=== PATIENT | male | born 1955 | race Caucasian/White ===

== ENCOUNTER → 2016-12-15 | Outpatient (CLI) | payer BC ==
[2016-12-15 16:25] LABS: CHLORIDE,CL 106 mmol/L (98-110); SODIUM,NA 143 mmol/L (136-146)
== END ==
LOC: MW.CHIM 15:34
PROVIDERS: ATTEND Internal Medicine
DX: E66.9 Obesity, unspecified (principal); R53.83 Other fatigue; R10.9 Unspecified abdominal pain
CPT/HCPCS: 36415; 80053; 80061; 81001; 83036; 84550; 85025; 85652; 86140

== ENCOUNTER → 2016-12-19 | Outpatient (CLI) | payer BC ==
--- NOTE | 2016-12-19 14:09 | CT ---
CT of the abdomen and pelvis without contrast. HISTORY: Pain TECHNIQUE: Axial CT images were obtained of the abdomen and pelvis without contrast. Coronal and sag ittal reconstructions obtained. FINDINGS: The lung bases are clear, no pleural effusion. There is a cyst within the left hepatic lobe and a several smaller scattered cysts noted within the liver. The Spleen, adrenal glands, and pancreas appear unremarkable for noncontrast examination. Cho lecystectomy. There is no bulky retroperitoneal lymphadenopathy. No abdominal ascites. There are no calcifications noted within the kidneys or along the courses of the ureters bilaterally . There is a moderate right renal cyst noted. The large and small bowel are normal in caliber without evidence of obstruction. The appendix appear s normal. Moderate sigmoid diverticulosis without evidence of diverticulitis. There is no bulky pelv ic lymphadenopathy. No free fluid. No free air. The urinary bladder appears normal. The visualized osseous structures appear normal. IMPRESSION: No 1. Diverticulosis without evidence of diverticulitis. 2. Cholecystectomy. 3. Hepatic and renal cysts noted. 4. No Acute findings within the abdomen or pelvis.
== END ==
LOC: MW.DI 12:51
PROVIDERS: ATTEND Internal Medicine
DX: R10.9 Unspecified abdominal pain (principal); K57.90 Diverticulosis of intestine, part unspecified, without perforation or abscess without bleeding; Z90.49 Acquired absence of other specified parts of digestive tract; K76.89 Other specified diseases of liver; N28.1 Cyst of kidney, acquired
CPT/HCPCS: 74176; 74176-26; 81001

== ENCOUNTER → 2017-01-20 | Outpatient (CLI) | payer BC ==
--- NOTE | 2017-01-20 15:32 | CR ---
EXAMINATION: Two-view chest (PA and Lateral views). HISTORY: Acute bronchitis. FINDINGS: The trachea is midline. The cardiomediastinal silhouette is within normal limits. No pulmonary infil trates, effusions or pneumothorax. Mild bibasilar atelectasis is noted. Osseous structures appear unremarkable. IMPRESSION: No acute cardiopulmonary process.
== END ==
LOC: MW.CHIM 14:56
PROVIDERS: ATTEND Internal Medicine
DX: J20.9 Acute bronchitis, unspecified (principal)
CPT/HCPCS: 36415; 71020; 71020-26; 85025

== ENCOUNTER 2018-03-21 11:51 | Emergency (ER) | payer BC ==
[2018-03-21] MEDS ORDERED: Sodium Chloride 0.9% 1,000 ML IV ONE (11:58)
[2018-03-21] MEDS ORDERED: Sodium Chloride 0.9% 10 ML Syringe FLUSH PRN (11:58)
[2018-03-21] MEDS ORDERED: Aspirin 81 MG Tab.Chew PO ONE (11:58)
[2018-03-21] MEDS ORDERED: Sodium Chloride 0.9% 2.5 ML Syringe FLUSH PRN (11:58)
--- NOTE | 2018-03-21 12:32 | EDM.PDOC ---
ED HPI GENERAL MEDICAL PROBLEM - General Chief Complaint: Gastrointestinal Problem Stated Complaint: DIZZYNESS, CHEST PAIN Time Seen by Provider: 03/21/18 13:39 Source of Information: Reports: Patient History Limitations: Reports: No Limitations - History of Present Illness INITIAL COMMENTS - FREE TEXT/NARRATIVE: HISTORY AND PHYSICAL: History of present illness: Gianluca is a 62-year-old male here with complaint of lightheadedness. He reports he has had this intermittently over the past 2 months. This morning he was sitting down and started feeling a rogers through his head and lightheaded, lasted approximately 30 seconds. He feels some tingling in his hands and reports a pain to the right chest. He reports he does not feel like the room is spinning or he is spinning. He denies any shortness of breath, diaphoresis, abdominal pain, headache. He states his symptoms have since resolved. Past medication history of insomnia and anxiety/depression. Patient later reports stopping his lorazepam a few months ago. Review of systems: As per history of present illness and below otherwise all systems reviewed and negative. Past medical history: As per history of present illness and as reviewed below otherwise noncontributory. Surgical history: As per history of present illness and as reviewed below otherwise noncontributory. Social history: No reported history of drug or alcohol abuse. Family history: As per history of present illness and as reviewed below otherwise noncontributory. Physical exam: General: patient lying comfortably in no acute distress HEENT: Atraumatic, normocephalic, pupils reactive, negative for conjunctival pallor or scleral icterus, mucous membranes moist Lungs: Clear to auscultation, breath sounds equal bilaterally, chest nontender. Heart: S1S2, regular, negative for clicks, rubs, or JVD. Abdomen: Soft, nondistended, nontender. Negative for masses or hepatosplenomegaly. Negative for costovertebral tenderness. Pelvis: Stable nontender. Genitourinary: Deferred. Rectal: Deferred Musculoskeletal: mild tenderness to palpation of right anterior chest. Extremities: Atraumatic, negative for cords or calf pain. Neurovascular unremarkable. Neuro: Awake, alert, oriented. Cranial nerves II through XII unremarkable. Cerebellum unremarkable. Motor and sensory unremarkable throughout. Exam nonfocal. Notes: Diagnostics: [CBC, CMP, Troponin, UA EKG, CXR] Therapeutics: [1L Normal Saline IV] Impression: [Dehydration Anxiety] Plan: [#1 Follow up with primary care provider #2 Return to ED as needed as discussed] Definitive disposition and diagnosis as appropriate pending reevaluation and review of above. Right Shoulder Pain Score (Numeric/FACES): 5 - Related Data Allergies Allergy/AdvReac Type Severity Reaction Status Date / Time No Known Allergies Allergy Verified 03/21/18 12:02 Home Meds: Home Meds LORazepam [Ativan] 0.5 mg PO ASDIRECTED PRN 05/26/16 [History] Omeprazole Magnesium [Prilosec Otc] 20 mg PO DAILY 05/26/16 [History] Sertraline [Zoloft] 50 mg PO DAILY 05/26/16 [History] Zolpidem [Ambien] 5 mg PO BEDTIME 05/26/16 [History] Past Medical History Cardiovascular History: Reports: None Respiratory History: Reports: None Gastrointestinal History: Reports: None Genitourinary History: Reports: None Psychiatric History: Reports: Anxiety, Panic Attack Hematologic History: Reports: None Immunologic History: Reports: None Oncologic (Cancer) History: Reports: None - Infectious Disease History Infectious Disease History: Reports: None - Past Surgical History Head Surgeries/Procedures: Reports: None HEENT Surgical History: Reports: Oral Surgery GI Surgical History: Reports: Cholecystectomy Male Surgical History: Reports: TURP-Transurethral Resection of Prostate Musculoskeletal Surgical History: Reports: Other (See Below) Social & Family History - Family History Family Medical History: Noncontributory - Tobacco Use Smoking Status *Q: Never Smoker - Caffeine Use Caffeine Use: Reports: Coffee, Soda Caffeine Use Comment: 2 cups per day - Recreational Drug Use Recreational Drug Use: No ED ROS GENERAL - Review of Systems Review Of Systems: ROS reveals no pertinent complaints other than HPI. ED EXAM, GI/ABD - Physical Exam Exam: See Below (see dictation) Course - Vital Signs Last Recorded V/S: Last Vital Signs Temp 36.4 C 03/21/18 12:03 Pulse 78 03/21/18 12:03 Resp 16 03/21/18 12:03 BP 141/82 H 03/21/18 12:03 Pulse Ox 92 L 03/21/18 12:03 - Orders/Labs/Meds Orders: Active Orders 24 hr Category Date Time Status Cardiac Monitoring [RC] . DIRECTED Care 03/21/18 11:58 Active EKG Documentation Completion [RC] STAT Care 03/21/18 11:59 Active Pulse Oximetry [RC] ASDIRECTED Care 03/21/18 11:58 Active Chest 1V Frontal [CR] Stat Exams 03/21/18 11:58 Taken CULTURE URINE [RM] Stat Lab 03/21/18 12:15 Ordered UA W/MICROSCOPIC [URIN] Stat Lab 03/21/18 12:15 Ordered Sodium Chloride 0.9% [Saline Flush] Med 03/21/18 11:58 Active 10 ml FLUSH ASDIRECTED PRN Sodium Chloride 0.9% [Saline Flush] Med 03/21/18 11:58 Active 2.5 ml FLUSH ASDIRECTED PRN Saline Lock Insert [OM.PC] Stat Oth 03/21/18 11:58 Ordered Medication Orders Sodium Chloride (Saline Flush) 10 ml FLUSH ASDIRECTED PRN PRN Reason: Keep Vein Open Sodium Chloride (Saline Flush) 2.5 ml FLUSH ASDIRECTED PRN PRN Reason: Keep Vein Open Labs: Laboratory Tests 03/21/18 03/21/18 03/21/18 Range/Units 12:06 12:06 12:06 WBC 5.82 (4.0-11.0) K/uL RBC 5.45 (4.50-5.90) M/uL Hgb 16.2 (13.0-17.0) g/dL Hct 46.3 (38.0-50.0) % MCV 85.0 (80.0-98.0) fL MCH 29.7 (27.0-32.0) pg MCHC 35.0 (31.0-37.0) g/dL RDW Std Deviation 41.3 (28.0-62.0) fl RDW Coeff of Javad 13 (11.0-15.0) % Plt Count 169 (150-400) K/uL MPV 9.80 (7.40-12.00) fL Neut % (Auto) 75.7 (48.0-80.0) % Lymph % (Auto) 13.4 L (16.0-40.0) % [place] % (Auto) 8.9 (0.0-15.0) % Eos % (Auto) 1.7 (0.0-7.0) % Baso % (Auto) 0.3 (0.0-1.5) % Neut # (Auto) 4.4 (1.4-5.7) K/uL Lymph # (Auto) 0.8 (0.6-2.4) K/uL [place] # (Auto) 0.5 (0.0-0.8) K/uL Eos # (Auto) 0.1 (0.0-0.7) K/uL Baso # (Auto) 0.0 (0.0-0.1) K/uL Nucleated RBC % 0.0 /100WBC Nucleated RBCs # 0 K/uL INR 0.99 Sodium 141 (136-148) mmol/L Potassium 4.0 (3.5-5.1) mmol/L Chloride 106 (98-107) mmol/L Carbon Dioxide 29.6 (21.0-32.0) mmol/L BUN 24 H (7.0-18.0) mg/dL Creatinine 1.2 (0.8-1.3) mg/dL Est Cr Clr Drug Dosing 71.85 mL/min Estimated GFR (MDRD) > 60.0 ml/min Glucose 138 H (74-106) mg/dL Calcium 8.9 (8.5-10.1) mg/dL Total Bilirubin 0.4 (0.2-1.0) mg/dL AST 16 (15-37) IU/L ALT 26 (14-63) IU/L Alkaline Phosphatase 76 (46-116) U/L Troponin I < 0.050 (0.000-0.056) ng/mL Total Protein 6.7 (6.4-8.2) g/dL Albumin 3.6 (3.4-5.0) g/dL Globulin 3.1 (2.0-3.5) g/dL Albumin/Globulin Ratio 1.2 L (1.3-2.8) Amylase 44 (25-115) U/L Lipase 224 (73-393) U/L Urine Color Urine Appearance Urine pH (5.0-8.0) Ur Specific [place] (1.001-1.035) Urine Protein (NEGATIVE) mg/dL Urine Glucose (UA) (NEGATIVE) mg/dL Urine Ketones (NEGATIVE) mg/dL Urine Occult Blood (NEGATIVE) Urine Nitrite (NEGATIVE) Urine Bilirubin (NEGATIVE) Urine Urobilinogen (<2.0) EU/dL Ur Leukocyte Esterase (NEGATIVE) Urine RBC (0-2/HPF) Urine WBC (0-5/HPF) Ur Epithelial Cells (NONE-FEW) Urine Bacteria (NEGATIVE) 03/21/18 Range/Units 12:15 WBC (4.0-11.0) K/uL RBC (4.50-5.90) M/uL Hgb (13.0-17.0) g/dL Hct (38.0-50.0) % MCV (80.0-98.0) fL MCH (27.0-32.0) pg MCHC (31.0-37.0) g/dL RDW Std Deviation (28.0-62.0) fl RDW Coeff of Javad (11.0-15.0) % Plt Count (150-400) K/uL MPV (7.40-12.00) fL Neut % (Auto) (48.0-80.0) % Lymph % (Auto) (16.0-40.0) % [place] % (Auto) (0.0-15.0) % Eos % (Auto) (0.0-7.0) % Baso % (Auto) (0.0-1.5) % Neut # (Auto) (1.4-5.7) K/uL Lymph # (Auto) (0.6-2.4) K/uL [place] # (Auto) (0.0-0.8) K/uL Eos # (Auto) (0.0-0.7) K/uL Baso # (Auto) (0.0-0.1) K/uL Nucleated RBC % /100WBC Nucleated RBCs # K/uL INR Sodium (136-148) mmol/L Potassium (3.5-5.1) mmol/L Chloride (98-107) mmol/L Carbon Dioxide (21.0-32.0) mmol/L BUN (7.0-18.0) mg/dL Creatinine (0.8-1.3) mg/dL Est Cr Clr Drug Dosing mL/min Estimated GFR (MDRD) ml/min Glucose (74-106) mg/dL Calcium (8.5-10.1) mg/dL Total Bilirubin (0.2-1.0) mg/dL AST (15-37) IU/L ALT (14-63) IU/L Alkaline Phosphatase (46-116) U/L Troponin I (0.000-0.056) ng/mL Total Protein (6.4-8.2) g/dL Albumin (3.4-5.0) g/dL Globulin (2.0-3.5) g/dL Albumin/Globulin Ratio (1.3-2.8) Amylase (25-115) U/L Lipase (73-393) U/L Urine Color YELLOW Urine Appearance CLEAR Urine pH 6.0 (5.0-8.0) Ur Specific [place] <= 1.005 (1.001-1.035) Urine Protein NEGATIVE (NEGATIVE) mg/dL Urine Glucose (UA) NEGATIVE (NEGATIVE) mg/dL Urine Ketones NEGATIVE (NEGATIVE) mg/dL Urine Occult Blood NEGATIVE (NEGATIVE) Urine Nitrite NEGATIVE (NEGATIVE) Urine Bilirubin NEGATIVE (NEGATIVE) Urine Urobilinogen 0.2 (<2.0) EU/dL Ur Leukocyte Esterase NEGATIVE (NEGATIVE) Urine RBC 0-1 (0-2/HPF) Urine WBC 0-1 (0-5/HPF) Ur Epithelial Cells RARE (NONE-FEW) Urine Bacteria RARE (NEGATIVE) Meds: Medications Generic Name Dose Route Start Last Admin Trade Name Freq PRN Reason Stop Dose Admin Sodium Chloride 10 ml 03/21/18 11:58 Saline Flush FLUSH ASDIRECTED PRN Keep Vein Open Sodium Chloride 2.5 ml 03/21/18 11:58 Saline Flush FLUSH ASDIRECTED PRN Keep Vein Open Discontinued Medications Generic Name Dose Route Start Last Admin Trade Name Ari PRN Reason Stop Dose Admin Aspirin 324 mg 03/21/18 11:58 03/21/18 12:26 Aspirin PO 03/21/18 11:59 324 mg ONETIME ONE Administration Sodium Chloride 1,000 mls @ 999 mls/hr 03/21/18 11:58 03/21/18 12:24 Normal Saline IV 03/21/18 12:58 999 mls/hr .Bolus ONE Administration Departure - Departure Time of Disposition: 13:38 Disposition: Home, Self-Care 01 Condition: Good Clinical Impression: Anxiety, Dehydration - Discharge Information Forms: ED Department Discharge Additional Instructions: The following information is given to patients seen in the emergency department who are being discharged to home. This information is to outline your options for follow-up care. We provide all patients seen in our emergency department with a follow-up referral. The need for follow-up, as well as the timing and circumstances, are variable depending upon the specifics of your emergency department visit. If you don't have a primary care physician on staff, we will provide you with a referral. We always advise you to contact your personal physician following an emergency department visit to inform them of the circumstance of the visit and for follow-up with them and/or the need for any referrals to a consulting specialist. The emergency department will also refer you to a specialist when appropriate. This referral assures that you have the opportunity for follow-up care with a specialist. All of these measure are taken in an effort to provide you with optimal care, which includes your follow-up. Under all circumstances we always encourage you to contact your private physician who remains a resource for coordinating your care. When calling for follow-up care, please make the office aware that this follow-up is from your recent emergency room visit. If for any reason you are refused follow-up, please contact the [facility] Department at and asked to speak to the emergency department charge nurse. [facility] [address] [place] [id number] [phone] Follow up with primary care provider #2 Return to ED as needed as discussed - My Orders Last 24 Hours: My Active Orders 03/21/18 11:58 Cardiac Monitoring [RC] . DIRECTED Pulse Oximetry [RC] ASDIRECTED Chest 1V Frontal [CR] Stat Sodium Chloride 0.9% [Saline Flush] 10 ml FLUSH ASDIRECTED PRN Sodium Chloride 0.9% [Saline Flush] 2.5 ml FLUSH ASDIRECTED PRN Saline Lock Insert [OM.PC] Stat 03/21/18 11:59 EKG Documentation Completion [RC] STAT 03/21/18 12:15 CULTURE URINE [RM] Stat UA W/MICROSCOPIC [URIN] Stat - Assessment/Plan Last 24 Hours: My Active Orders 03/21/18 11:58 Cardiac Monitoring [RC] . DIRECTED Pulse Oximetry [RC] ASDIRECTED Chest 1V Frontal [CR] Stat Sodium Chloride 0.9% [Saline Flush] 10 ml FLUSH ASDIRECTED PRN Sodium Chloride 0.9% [Saline Flush] 2.5 ml FLUSH ASDIRECTED PRN Saline Lock Insert [OM.PC] Stat 03/21/18 11:59 EKG Documentation Completion [RC] STAT 03/21/18 12:15 CULTURE URINE [RM] Stat UA W/MICROSCOPIC [URIN] Stat
[2018-03-21 12:35] LABS: CHLORIDE,CL 106 mmol/L (98-107); SODIUM,NA 141 mmol/L (136-148)
[2018-03-21 14:29] VITALS: BP 125/62
--- NOTE | 2018-03-22 17:32 | CR ---
EXAM DATE: 03/21/18 PATIENT'S AGE: 62 Patient: NATANAEL FEE Facility: [place], [place] Site . Site : [id number] Study: XRay Chest [id number]/15/2018 12:53:23 PM Ordering Physician: Doctor Patino Final Report: INDICATION: Chest pain TECHNIQUE: Single view chest. FINDINGS: The lungs are clear. The heart, mediastinum and pulmonary vessels are of normal size. There is no evidence of pleural disease. IMPRESSION: Negative chest. Dictated by Genevieve Curry MD @ Mar 21 2018 1:22PM (Electronic Signature) Report Signed by Proxy. LAN
== END 2018-03-21 13:59 | disposition home or self-care (01) ==
LOC: MW.ED 11:51
DX: E86.0 Dehydration (principal); F41.9 Anxiety disorder, unspecified; Z79.899 Other long term (current) drug therapy
CPT/HCPCS: 71045; 80053; 81001; 82150; 83690; 84484; 85025; 85610; 87086; 93005; 96360; 99284; A9270; J7040

== ENCOUNTER 2020-04-05 13:01 | Observation (INO) | payer BC, OTHER ==
[2020-04-05] MEDS ORDERED: Sodium Chloride 0.9% 2.5 ML Syringe FLUSH PRN (13:03)
[2020-04-05] MEDS ORDERED: Sodium Chloride 0.9% 10 ML Syringe FLUSH PRN (13:03)
[2020-04-05] MEDS ORDERED: Aspirin 81 MG Tab.Chew PO ONE (13:03)
--- NOTE | 2020-04-05 13:07 | EDM.PDOC ---
<Annel Day E - Last Filed: 04/05/20 17:09> ED HPI GENERAL MEDICAL PROBLEM - General Stated Complaint: CHEST PAIN Time Seen by Provider: 04/05/20 13:03 Source of Information: Reports: Patient History Limitations: Reports: No Limitations - History of Present Illness INITIAL COMMENTS - FREE TEXT/NARRATIVE: HISTORY AND PHYSICAL: History of present illness: Patient is a 64-year-old male who presents to the emergency room with complaints of sharp sudden chest pain to the left anterior chest. He states this started while at work approximately 15 minutes prior to arrival. He states nothing makes the pain better or worse. Pain does not radiate anywhere. 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 Referral for cardiology was due to some lower extremity edema, shortness of breath and episodes of tachycardia that has been intermittent over the past 1 month. Patient denies any fever, chills, headache, change in vision, syncope or near syncope. Denies any neck/neck/back pain or cough. Denies any abdominal pain, nausea, vomiting, diarrhea, constipation or dysuria. Has not noted any blood in urine or stool. Patient has been eating and drinking appropriately. No personal family history of heart disease. Does not smoke. Review of systems: As per history of present illness and below otherwise all systems reviewed and negative. Past medical history: As per history of present illness and as reviewed below otherwise noncontributory. Surgical history: As per history of present illness and as reviewed below otherwise noncontributory. Social history: See social history for further information Family history: As per history of present illness and as reviewed below otherwise no ncontributory. Physical exam: General: Well developed and well nourished 64-year-old male. Alert and oriented. Nontoxic-appearing but appears mildly uncomfortable HEENT: Atraumatic, normocephalic, pupils equal and reactive bilaterally, negative for conjunctival pallor or scleral icterus, mucous membranes moist, TMs normal bilaterally, throat clear, neck supple, nontender, trachea midline. No dr ooling or trismus noted. No meningeal signs. No hot potato voice noted. Lungs: Slightly diminished bases bilaterally to auscultation, breath sounds equal bilaterally, chest nontender. Heart: S1S2, regular rate and rhythm without overt murmur Abdomen: Soft, nondistended, nontender. Negative for masses or hepatosplenomegaly. Negative for costovertebral tenderness. Pelvis: Stable nontender. Skin: Intact, warm, dry. No lesions or rashes noted. Extremities: Atraumatic, moves all extremities per self without difficulty or deficits, negative for cords or calf pain. Neurovascular unremarkable. Neuro: Awake, alert, oriented. Cranial nerves II through XII unremarkable. Cerebellum unremarkable. Motor and sensory unremarkable throughout. Exam nonfocal. 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 03/14/2020: Echocardiogram was done: Left ventricle ejection fraction, by visual estimation is 60 to 65%. Aortic valve is structurally normal and tricuspid. No evidence of mitral valve regurgitation. Mild tricuspid valve regurgitation. The right ventricular systolic pressure is normal at 29.0 mmHg. 7.5 cm probable liver cyst. No regional wall motion abnormalities. EKG shows no concern for STEMI. Sinus Rhythm with rate of 79. Patient did not get any relief with the nitro. Morphine has been administered. Patient was used on 3 L of oxygen as his oxygen saturation was 90% on room air. D-dimer is within normal limits. Chest X-ray shows no acute findings. CT of the chest shows no pulmonary embolism. Groundglass appearance within the left upper lung as well as both lower lungs as well as atelectasis within both lower lungs. Radiology states it is difficult to exclude superimposed pneumonia with atelectasis. Liver cyst noted measuring 7.[address] Kessler was consulted on this case. He is agreeable to accepting this patient. COVID results negative. Patient states he is currently pain-free. No change in physical exam. Patient will be admitted for observation with telemetry. Diagnostics: CBC, CMP, Troponin, EKG, CXR, D.Dimer, CT chest Therapeutics: Aspirin, Nitro, morphine, zofran Impression: Chest pain r/o UT Plan: Med/Surg admission to Definitive disposition and diagnosis as appropriate pending reevaluation and review of above. Onset: Today Location: Reports: Chest chest Pain Score (Numeric/FACES): 5 - Related Data Allergies Allergy/AdvReac Type Severity Reaction Status Date / Time No Known Allergies Allergy Verified 04/05/20 16:58 Home Meds: Home Meds LORazepam [Ativan] 0.5 mg PO DAILY PRN 05/26/16 [History] Sertraline [Zoloft] 100 mg PO DAILY 05/26/16 [History] Zolpidem [Ambien] 10 mg PO BEDTIME PRN 05/26/16 [History] Finasteride 5 mg PO DAILY 04/05/20 [History] Losartan [Cozaar] 25 mg PO DAILY 04/05/20 [History] Tamsulosin [Tamsulosin 24 Hr] 0.4 mg PO DAILY 04/05/20 [History] Past Medical History Cardiovascular History: Reports: None Respiratory History: Reports: None Gastrointestinal History: Reports: None Genitourinary History: Reports: None Psychiatric History: Reports: Anxiety, Panic Attack Hematologic History: Reports: None Immunologic History: Reports: None Oncologic (Cancer) History: Reports: None - Infectious Disease History Infectious Disease History: Reports: None - Past Surgical History Head Surgeries/Procedures: Reports: None HEENT Surgical History: Reports: Oral Surgery GI Surgical History: Reports: Cholecystectomy Male Surgical History: Reports: TURP-Transurethral Resection of Prostate Musculoskeletal Surgical History: Reports: Other (See Below) Social & Family History - Family History Family Medical History: Noncontributory - Caffeine Use Caffeine Use: Reports: Coffee, Soda Caffeine Use Comment: 2 cups per day ED ROS GENERAL - Review of Systems Review Of Systems: Comprehensive ROS is negative, except as noted in HPI. ED EXAM, GENERAL - Physical Exam Exam: See Below (See dictation) Departure - Departure Time of Disposition: 17:09 Disposition: Home, Self-Care 01 Clinical Impression: Chest pain, rule out acute myocardial infarction <Benito Galvan - Last Filed: 04/06/20 07:26> ED HPI GENERAL MEDICAL PROBLEM chest Pain Score (Numeric/FACES): 5 Left Upper Anterior Chest Pain Score (Numeric/FACES): 3 Course - Vital Signs Last Recorded V/S: Last Vital Signs Temp 36.3 C 04/06/20 04:17 Pulse 67 04/06/20 04:17 Resp 17 04/06/20 04:17 BP 105/66 04/06/20 04:17 Pulse Ox 94 L 04/06/20 04:17 - Orders/Labs/Meds Orders: Active Orders 24 hr Category Date Time Status Cardiac Monitoring [RC] Q8H Care 04/05/20 13:03 Active Sodium Chloride 0.9% [Saline Flush] Med 04/05/20 13:03 Active 10 ml FLUSH ASDIRECTED PRN Sodium Chloride 0.9% [Saline Flush] Med 04/05/20 13:03 Active 2.5 ml FLUSH ASDIRECTED PRN Saline Lock Insert [OM.PC] Stat Oth 04/05/20 13:03 Ordered Medication Orders Acetaminophen (Tylenol) 650 mg PO Q4H PRN PRN Reason: Pain (Mild 1-3)/fever Last Admin: 04/05/20 18:23 Dose: 650 mg Documented by: ANNALISA Enoxaparin Sodium (Lovenox) 40 mg SUBCUT Q24H LIAN Last Admin: 04/05/20 18:24 Dose: 40 mg Documented by: ANNALISA Finasteride (Proscar) 5 mg PO DAILY [facility] Losartan Potassium (Cozaar) 25 mg PO DAILY [facility] Morphine Sulfate (Morphine) 2 mg IVPUSH Q4H PRN PRN Reason: Pain (severe 7-10) Stop: 04/06/20 17:47 Zolpidem 10 Mg 1 each PO BEDTIME PRN PRN Reason: Sleep Last Admin: 04/05/20 21:18 Dose: 1 each Documented by: AYESHA Sertraline HCl (Zoloft) 100 mg PO DAILY [facility] Sodium Chloride (Saline Flush) 10 ml FLUSH ASDIRECTED PRN PRN Reason: Keep Vein Open Sodium Chloride (Saline Flush) 2.5 ml FLUSH ASDIRECTED PRN PRN Reason: Keep Vein Open Tamsulosin HCl (Flomax) 0.4 mg PO DAILY [facility] Labs: Laboratory Tests 04/05/20 04/05/20 04/05/20 Range/Units 13:13 13:13 13:13 WBC 8.22 (4.0-11.0) K/uL RBC 5.79 (4.50-5.90) M/uL Hgb 17.2 H (13.0-17.0) g/dL Hct 49.9 (38.0-50.0) % MCV 86.2 (80.0-98.0) fL MCH 29.7 (27.0-32.0) pg MCHC 34.5 (31.0-37.0) g/dL RDW Std Deviation 42.2 (28.0-62.0) fl RDW Coeff of Javad 13 (11.0-15.0) % Plt Count 207 (150-400) K/uL MPV 10.00 (7.40-12.00) fL Neut % (Auto) 74.7 (48.0-80.0) % Lymph % (Auto) 12.9 L (16.0-40.0) % Dorado % (Auto) 10.1 (0.0-15.0) % Eos % (Auto) 1.9 (0.0-7.0) % Baso % (Auto) 0.4 (0.0-1.5) % Neut # (Auto) 6.1 H (1.4-5.7) K/uL Lymph # (Auto) 1.1 (0.6-2.4) K/uL [place] # (Auto) 0.8 (0.0-0.8) K/uL Eos # (Auto) 0.2 (0.0-0.7) K/uL Baso # (Auto) 0.0 (0.0-0.1) K/uL Nucleated RBC % 0.0 /100WBC Nucleated RBCs # 0 K/uL D-Dimer, Quantitative 0.38 (0.0-0.50) mg/L FEU Sodium 139 (136-148) mmol/L Potassium 3.6 (3.5-5.1) mmol/L Chloride 101 (98-107) mmol/L Carbon Dioxide 28.0 (21.0-32.0) mmol/L BUN 14 (7.0-18.0) mg/dL Creatinine 1.1 (0.8-1.3) mg/dL Est Cr Clr Drug Dosing 76.42 mL/min Estimated GFR (MDRD) > 60.0 ml/min Glucose 95 (74-106) mg/dL Calcium 8.5 (8.5-10.1) mg/dL Total Bilirubin 0.3 (0.2-1.0) mg/dL AST 19 (15-37) IU/L ALT 28 (14-63) IU/L Alkaline Phosphatase 82 (46-116) U/L Troponin I < 0.050 (0.000-0.056) ng/mL B-Natriuretic Peptide (<100) PG/ML Total Protein 8.1 (6.4-8.2) g/dL Albumin 4.3 (3.4-5.0) g/dL Globulin 3.8 (2.6-4.0) g/dL Albumin/Globulin Ratio 1.1 (0.9-1.6) COVID-19 (SALLY) (NEGATIVE) 04/05/20 04/05/20 Range/Units 13:13 15:20 WBC (4.0-11.0) K/uL RBC (4.50-5.90) M/uL Hgb (13.0-17.0) g/dL Hct (38.0-50.0) % MCV (80.0-98.0) fL MCH (27.0-32.0) pg MCHC (31.0-37.0) g/dL RDW Std Deviation (28.0-62.0) fl RDW Coeff of Javad (11.0-15.0) % Plt Count (150-400) K/uL MPV (7.40-12.00) fL Neut % (Auto) (48.0-80.0) % Lymph % (Auto) (16.0-40.0) % Dorado % (Auto) (0.0-15.0) % Eos % (Auto) (0.0-7.0) % Baso % (Auto) (0.0-1.5) % Neut # (Auto) (1.4-5.7) K/uL Lymph # (Auto) (0.6-2.4) K/uL [place] # (Auto) (0.0-0.8) K/uL Eos # (Auto) (0.0-0.7) K/uL Baso # (Auto) (0.0-0.1) K/uL Nucleated RBC % /100WBC Nucleated RBCs # K/uL D-Dimer, Quantitative (0.0-0.50) mg/L FEU Sodium (136-148) mmol/L Potassium (3.5-5.1) mmol/L Chloride (98-107) mmol/L Carbon Dioxide (21.0-32.0) mmol/L BUN (7.0-18.0) mg/dL Creatinine (0.8-1.3) mg/dL Est Cr Clr Drug Dosing mL/min Estimated GFR (MDRD) ml/min Glucose (74-106) mg/dL Calcium (8.5-10.1) mg/dL Total Bilirubin (0.2-1.0) mg/dL AST (15-37) IU/L ALT (14-63) IU/L Alkaline Phosphatase (46-116) U/L Troponin I (0.000-0.056) ng/mL B-Natriuretic Peptide 23 (<100) PG/ML Total Protein (6.4-8.2) g/dL Albumin (3.4-5.0) g/dL Globulin (2.6-4.0) g/dL Albumin/Globulin Ratio (0.9-1.6) COVID-19 (SALLY) NEGATIVE (NEGATIVE) Meds: Medications Generic Name Dose Route Start Last Admin Trade Name Freq PRN Reason Stop Dose Admin Acetaminophen 650 mg 04/05/20 17:46 04/05/20 18:23 Tylenol PO 650 mg Q4H PRN Administration Pain (Mild 1-3)/fever Enoxaparin Sodium 40 mg 04/05/20 18:00 04/05/20 18:24 Lovenox SUBCUT 40 mg Q24H LIAN Administration Finasteride 5 mg 04/06/20 09:00 Proscar PO DAILY [facility]AN Losartan Potassium 25 mg 04/06/20 09:00 Cozaar PO DAILY [facility]AN Morphine Sulfate 2 mg 04/05/20 17:46 Morphine IVPUSH 04/06/20 17:47 Q4H PRN Pain (severe 7-10) Zolpidem 10 Mg 1 each 04/05/20 17:48 04/05/20 21:18 PO 1 each BEDTIME PRN Administration Sleep Sertraline HCl 100 mg 04/06/20 09:00 Zoloft PO DAILY [facility]AN Sodium Chloride 10 ml 04/05/20 13:03 Saline Flush FLUSH ASDIRECTED PRN Keep Vein Open Sodium Chloride 2.5 ml 04/05/20 13:03 Saline Flush FLUSH ASDIRECTED PRN Keep Vein Open Tamsulosin HCl 0.4 mg 04/06/20 09:00 Flomax PO DAILY LIAN Discontinued Medications Generic Name Dose Route Start Last Admin Trade Name Freq PRN Reason Stop Dose Admin Aspirin 324 mg 04/05/20 13:03 04/05/20 13:19 Aspirin PO 04/05/20 13:04 324 mg ONETIME ONE Administration Sodium Chloride 1,000 mls @ 125 mls/hr 04/05/20 13:21 04/05/20 13:25 Normal Saline IV 04/05/20 21:20 125 mls/hr STAT ONE Administration Iopamidol 50 ml 04/05/20 14:42 04/05/20 15:03 Isovue-370 (76%) IV 04/05/20 14:43 50 ml ONETIME STA Administration Morphine Sulfate 4 mg 04/05/20 13:27 04/05/20 13:32 Morphine IVPUSH 04/05/20 13:28 4 mg ONETIME ONE Administration Morphine Sulfate 2 mg 04/05/20 14:20 04/05/20 15:12 Morphine IVPUSH 04/05/20 14:21 2 mg ONETIME ONE Administration Nitroglycerin 0.4 mg 04/05/20 13:03 04/05/20 13:29 Nitrostat SL 0.4 mg Q5M PRN Administration Chest Pain Ondansetron HCl 4 mg 04/05/20 13:27 04/05/20 13:32 Zofran IVPUSH 04/05/20 13:28 4 mg ONETIME ONE Administration MLP Sign Off - Signature Requirements MLP Sign Off: Yes :: See my separate supervisory note from the same date of service. -Sachi Galvan, DO
[2020-04-05] MEDS: Nitroglycerin 0.4 MG Tab.SL SL PRN ×3 (13:19→13:29)
[2020-04-05] MEDS ORDERED: Sodium Chloride 0.9% 1,000 ML IV ONE (13:21)
[2020-04-05] MEDS ORDERED: Morphine 4 MG/ML Syringe IVPUSH ONE (13:27)
[2020-04-05] MEDS ORDERED: Ondansetron 4 MG/2 ML SDV IVPUSH ONE (13:27)
--- NOTE | 2020-04-05 13:57 | CR ---
Chest: Portable view of the chest was obtained. Comparison: Prior chest x-ray of 03/21/18 is available as well as prior chest CT study of 03/14/20. Findings: Heart size and mediastinum are normal. Lungs show no acute parenchymal change. Bony structures are grossly intact. Impression: 1. Nothing acute is appreciated on portable chest x-ray. Diagnostic code #1 This report was dictated in MDT
--- NOTE | 2020-04-05 14:03 | PCM.SN.2 ---
- Free Text/Narrative Note: Patient was presented to be by the mid-level provider. I have personally independently seen and evaluated the patient at bedside and, if available, have spoken with the with the family. I agree with the history, physical, medical decision making, and plan of treatment as documented by the mid-level provider. I have performed the medical decision making for this patient, including assessing the results of all diagnostic testing and I have instructed the mid- level provider to document the results. 62-year-old male with past medical history of hypertension presenting with new onset left-sided chest pain described as "pressure" radiating to the left shoulder and the left trapezius. Onset about 1 hour 20 minutes prior to arrival while in a meeting. Nothing makes it better or worse. Also reports a 1 month history of new dyspnea. Has been followed by his primary doctor and had an echocardiogram on 03/14/2020 that showed normal left ventricular function. No known history of coronary artery disease or any pulmonary disease. Twelve-lead EKG shows no acute ischemia. D-dimer is negative. Troponin is negative. LFTs, electrolytes, renal function reassuring. Noted to be hypoxic on room air and required supplemental oxygen, initial room air saturations were 90%. Lungs are clear. CT pulmonary angiogram study showed no evidence of pulmonary embolism but did demonstrate groundglass appearance of the left upper lung and both lower lungs, concerning for possible pneumonia although the patient does not have any fever or cough or constitutional symptoms. Initial work-up for coronary ischemia is negative but the patient is persistently hypoxic despite negative PE work-up. No convincing story for pneu monia at this point so we will defer antibiotics. However, given persistent hypoxia I would favor admission to the hospital on observation status. Dr. Herminio Kessler the hospitalist agrees to admit to observation.
[2020-04-05 14:04] LABS: BLOOD UREA NITROGEN,BUN 14 mg/dL (7.0-18.0); CHLORIDE,CL 101 mmol/L (98-107); GLUCOSE RANDOM 95 mg/dL (74-106); POTASSIUM,K 3.6 mmol/L (3.5-5.1); SODIUM,NA 139 mmol/L (136-148)
[2020-04-05] MEDS ORDERED: Morphine 2 MG/ML SYRINGE IVPUSH ONE (14:20)
[2020-04-05] MEDS ORDERED: Iopamidol 755 MG/ML 50 ML Bottle IV STA (14:42)
--- NOTE | 2020-04-05 15:17 | CT ---
CT chest Technique: Multiple axial sections through the chest were obtained. Intravenous contrast was utilized. Study performed as a pulmonary angiogram protocol. Comparison: Prior chest CT study of 03/14/20. Findings: Pulmonary arteries are fairly well opacified. No filling defects are seen to indicate pulmonary embolism. Visualized upper abdominal structures shows a large liver cyst measuring 7.6 cm. No pericardial thickening is seen. Aorta shows no aneurysm. Mediastinum and hilar region show no adenopathy. No axillary adenopathy is noted. Areas of atelectasis is noted within both lungs which have increased from previous exam. Slight groundglass appearance is noted within both lower lungs as well as small amount within the left upper lung. Difficult to exclude mild superimposed pneumonia with atelectasis. No pleural effusions are seen. No pneumothorax is noted. No acute bony abnormality is appreciated. Impression: 1. No findings of pulmonary embolism. 2. Groundglass appearance within the left upper lung as well as both lower lungs as well as atelectasis within both lower lungs. As mentioned above, difficult to exclude superimposed pneumonia with atelectasis. These findings represent an interval change from prior study. 3. Liver cyst. Diagnostic code #3 This report was dictated in MDT
[2020-04-05] MEDS ORDERED: Morphine 2 MG/ML SYRINGE IVPUSH PRN (17:46)
[2020-04-05] MEDS ORDERED: Zolpidem 10 MG PO PRN (17:48)
--- NOTE | 2020-04-05 17:49 | PCM.HP.2 ---
H&P History of Present Illness - General Date of Service: 04/05/20 Admit Problem/Dx: Admission Diagnosis/Problem Admission Diagnosis/Problem Chest pain, rule out acute myocardial infarction Source of Information: Patient History Limitations: Reports: No Limitations - History of Present Illness Initial Comments - Free Text/Narative: 64-year-old male presents complaining of left-sided chest pain. He has a PMH of hypertension and BPH. The pain started while on a conference call at work. It is is described as being "pressure-like" and there was some radiation to his left shoulder. The pain does not change when he is exerting himself or at rest. Of note, patient reports that he has been having intermitted leg swelling and shortness of breath for the past 1-2 months. He has a pending cardiology referral made by his PCP. He denies any fevers, chills, sore throat, cough, nausea, vomiting, abdominal pain, diarrhea, blood in stool, blood in urine, numbness or tingling in extremities. In the ER, patient started on supplemental oxygen, EKG showed no acute ST changes, given aspirin, nitroglycerin x 3, morphine and zofran. CXR negative. CT chest showed BARTOLO ground glass appearance as well as b/l lower lobes. Per radiologist, difficult to exclude superimposed pneumonia on atelectasis. Initial troponin was negative. COVID19 negative. chest Pain Score (Numeric/FACES): 5 - Related Data Allergies/Adverse Reactions: Allergies Allergy/AdvReac Type Severity Reaction Status Date / Time No Known Allergies Allergy Verified 04/05/20 16:58 Home Medications: Home Meds LORazepam [Ativan] 0.5 mg PO DAILY PRN 05/26/16 [History] Sertraline [Zoloft] 100 mg PO DAILY 05/26/16 [History] Zolpidem [Ambien] 10 mg PO BEDTIME PRN 05/26/16 [History] Finasteride 5 mg PO DAILY 04/05/20 [History] Losartan [Cozaar] 25 mg PO DAILY 04/05/20 [History] Tamsulosin [Tamsulosin 24 Hr] 0.4 mg PO DAILY 04/05/20 [History] Past Medical History HEENT History: Reports: None Cardiovascular History: Reports: None Respiratory History: Reports: None Gastrointestinal History: Reports: None Genitourinary History: Reports: None Psychiatric History: Reports: Anxiety, Panic Attack Hematologic History: Reports: None Immunologic History: Reports: None Oncologic (Cancer) History: Reports: None - Infectious Disease History Infectious Disease History: Reports: None - Past Surgical History Head Surgeries/Procedures: Reports: None HEENT Surgical History: Reports: Oral Surgery GI Surgical History: Reports: Cholecystectomy Male Surgical History: Reports: TURP-Transurethral Resection of Prostate Musculoskeletal Surgical History: Reports: Other (See Below) Social & Family History - Family History Family Medical History: Noncontributory - Tobacco Use Smoking Status *Q: Never Smoker Years of Tobacco use: 35 Second Hand Smoke Exposure: No - Caffeine Use Caffeine Use: Reports: Coffee, Soda Caffeine Use Comment: 2 cups per day - Recreational Drug Use Recreational Drug Use: No H&P Review of Systems - Review of Systems: Review Of Systems: Comprehensive ROS is negative, except as noted in HPI. Exam - Exam Exam: See Below - Vital Signs Vital Signs: Last Vital Signs Temp 36.4 C 04/05/20 16:35 Pulse 60 04/05/20 16:35 Resp 18 04/05/20 13:08 BP 131/77 04/05/20 16:35 Pulse Ox 97 04/05/20 16:35 Weight: 114.623 kg - Exam General: Alert, Oriented, Cooperative HEENT: Conjunctiva Clear, EOMI, Hearing Intact, Posterior Pharynx Clear, Pupils Equal, Pupils Reactive Neck: Supple, Trachea Midline Lungs: Clear to Auscultation, Normal Respiratory Effort Cardiovascular: Regular Rate, Regular Rhythm GI/Abdominal Exam: Normal Bowel Sounds, Soft, Non-Tender, No Distention Extremities: Normal Inspection, Normal Range of Motion, No Pedal Edema Skin: Warm, Dry, Intact Neurological: Cranial Nerves Intact, Strength Equal Bilateral, Normal Speech, Normal Tone Neuro Extensive - Mental Status: Alert, Oriented x3, Normal Mood/Affect Psychiatric: Alert, Normal Affect, Normal Mood - Patient Data Lab Results Last 24 hrs: Laboratory Results - last 24 hr 04/05/20 04/05/20 04/05/20 Range/Units 13:13 13:13 13:13 WBC 8.22 (4.0-11.0) K/uL RBC 5.79 (4.50-5.90) M/uL Hgb 17.2 H (13.0-17.0) g/dL Hct 49.9 (38.0-50.0) % MCV 86.2 (80.0-98.0) fL MCH 29.7 (27.0-32.0) pg MCHC 34.5 (31.0-37.0) g/dL RDW Std Deviation 42.2 (28.0-62.0) fl RDW Coeff of Javad 13 (11.0-15.0) % Plt Count 207 (150-400) K/uL MPV 10.00 (7.40-12.00) fL Neut % (Auto) 74.7 (48.0-80.0) % Lymph % (Auto) 12.9 L (16.0-40.0) % [place] % (Auto) 10.1 (0.0-15.0) % Eos % (Auto) 1.9 (0.0-7.0) % Baso % (Auto) 0.4 (0.0-1.5) % Neut # (Auto) 6.1 H (1.4-5.7) K/uL Lymph # (Auto) 1.1 (0.6-2.4) K/uL [place] # (Auto) 0.8 (0.0-0.8) K/uL Eos # (Auto) 0.2 (0.0-0.7) K/uL Baso # (Auto) 0.0 (0.0-0.1) K/uL Nucleated RBC % 0.0 /100WBC Nucleated RBCs # 0 K/uL D-Dimer, Quantitative 0.38 (0.0-0.50) mg/L FEU Sodium 139 (136-148) mmol/L Potassium 3.6 (3.5-5.1) mmol/L Chloride 101 (98-107) mmol/L Carbon Dioxide 28.0 (21.0-32.0) mmol/L BUN 14 (7.0-18.0) mg/dL Creatinine 1.1 (0.8-1.3) mg/dL Est Cr Clr Drug Dosing 76.42 mL/min Estimated GFR (MDRD) > 60.0 ml/min Glucose 95 (74-106) mg/dL Calcium 8.5 (8.5-10.1) mg/dL Total Bilirubin 0.3 (0.2-1.0) mg/dL AST 19 (15-37) IU/L ALT 28 (14-63) IU/L Alkaline Phosphatase 82 (46-116) U/L Troponin I < 0.050 (0.000-0.056) ng/mL B-Natriuretic Peptide (<100) PG/ML Total Protein 8.1 (6.4-8.2) g/dL Albumin 4.3 (3.4-5.0) g/dL Globulin 3.8 (2.6-4.0) g/dL Albumin/Globulin Ratio 1.1 (0.9-1.6) COVID-19 (SALLY) (NEGATIVE) 04/05/20 04/05/20 Range/Units 13:13 15:20 WBC (4.0-11.0) K/uL RBC (4.50-5.90) M/uL Hgb (13.0-17.0) g/dL Hct (38.0-50.0) % MCV (80.0-98.0) fL MCH (27.0-32.0) pg MCHC (31.0-37.0) g/dL RDW Std Deviation (28.0-62.0) fl RDW Coeff of Javad (11.0-15.0) % Plt Count (150-400) K/uL MPV (7.40-12.00) fL Neut % (Auto) (48.0-80.0) % Lymph % (Auto) (16.0-40.0) % [place] % (Auto) (0.0-15.0) % Eos % (Auto) (0.0-7.0) % Baso % (Auto) (0.0-1.5) % Neut # (Auto) (1.4-5.7) K/uL Lymph # (Auto) (0.6-2.4) K/uL [place] # (Auto) (0.0-0.8) K/uL Eos # (Auto) (0.0-0.7) K/uL Baso # (Auto) (0.0-0.1) K/uL Nucleated RBC % /100WBC Nucleated RBCs # K/uL D-Dimer, Quantitative (0.0-0.50) mg/L FEU Sodium (136-148) mmol/L Potassium (3.5-5.1) mmol/L Chloride (98-107) mmol/L Carbon Dioxide (21.0-32.0) mmol/L BUN (7.0-18.0) mg/dL Creatinine (0.8-1.3) mg/dL Est Cr Clr Drug Dosing mL/min Estimated GFR (MDRD) ml/min Glucose (74-106) mg/dL Calcium (8.5-10.1) mg/dL Total Bilirubin (0.2-1.0) mg/dL AST (15-37) IU/L ALT (14-63) IU/L Alkaline Phosphatase (46-116) U/L Troponin I (0.000-0.056) ng/mL B-Natriuretic Peptide 23 (<100) PG/ML Total Protein (6.4-8.2) g/dL Albumin (3.4-5.0) g/dL Globulin (2.6-4.0) g/dL Albumin/Globulin Ratio (0.9-1.6) COVID-19 (SALLY) NEGATIVE (NEGATIVE) Result Diagrams: 04/05/20 13:13 04/05/20 13:13 Sepsis Event Note - Evaluation Sepsis Screening Result: No Definite Risk - Focused Exam Vital Signs: Vital Signs Temp Pulse Resp BP BP Pulse Ox 04/05/20 16:35 36.4 C 60 131/77 97 04/05/20 13:37 96 04/05/20 13:35 90 L 04/05/20 13:34 78 115/65 91 L 04/05/20 13:29 118/72 04/05/20 13:25 127/80 04/05/20 13:19 129/82 04/05/20 13:08 36.1 C 80 18 158/84 H 95 Date Exam was Performed: 04/05/20 Time Exam was Performed: 18:44 Problem List Initiated/Reviewed/Updated: Yes Orders Last 24hrs: Active Orders 24 hr Category Date Time Status Admission Status [Patient Status] [ADT] Stat ADT 04/05/20 15:45 Active Cardiac Monitoring [RC] . DIRECTED Care 04/05/20 13:03 Active Oxygen Therapy [RC] PRN Care 04/05/20 17:47 Ordered Up ad Char [RC] ASDIRECTED Care 04/05/20 17:46 Ordered VTE/DVT Education [RC] PER UNIT ROUTINE Care 04/05/20 17:47 Ordered Vital Signs [RC] Q4H Care 04/05/20 17:47 Ordered Heart Healthy Diet [DIET] Diet 04/05/20 Lunch Active MAGNESIUM [CHEM] Routine Lab 04/05/20 17:22 Ordered PHOSPHORUS [CHEM] Routine Lab 04/05/20 17:22 Ordered TROPONIN I [CHEM] Q6H Lab 04/05/20 19:00 Ordered TROPONIN I [CHEM] Q6H Lab 04/06/20 01:00 Ordered TSH [CHEM] Routine Lab 04/05/20 17:22 Ordered Acetaminophen [Tylenol] Med 04/05/20 17:46 Ordered 650 mg PO Q4H PRN Enoxaparin [Lovenox] Med 04/05/20 18:00 Ordered 40 mg SUBCUT Q24H Finasteride [Proscar] Med 04/06/20 09:00 Ordered 5 mg PO DAILY Losartan Med 04/06/20 09:00 Ordered 25 mg PO DAILY Morphine Med 04/05/20 17:46 Ordered 2 mg IVPUSH Q4H PRN Sertraline [Zoloft] Med 04/06/20 09:00 Ordered 100 mg PO DAILY Sodium Chloride 0.9% [Normal Saline] 1,000 ml Med 04/05/20 13:21 Active IV STAT Sodium Chloride 0.9% [Saline Flush] Med 04/05/20 13:03 Active 10 ml FLUSH ASDIRECTED PRN Sodium Chloride 0.9% [Saline Flush] Med 04/05/20 13:03 Active 2.5 ml FLUSH ASDIRECTED PRN Tamsulosin [Flomax] Med 04/06/20 09:00 Ordered 0.4 mg PO DAILY Zolpidem Med 04/05/20 17:48 Ordered 10 mg PO BEDTIME PRN Saline Lock Insert [OM.PC] Stat Oth 04/05/20 13:03 Ordered Resuscitation Status Routine Resus Stat 04/05/20 17:46 Ordered Medication Orders Acetaminophen (Tylenol) 650 mg PO Q4H PRN PRN Reason: Pain (Mild 1-3)/fever Enoxaparin Sodium (Lovenox) 40 mg SUBCUT Q24H LIAN Sodium Chloride (Normal Saline) 1,000 mls @ 125 mls/hr IV STAT ONE Stop: 04/05/20 21:20 Last Admin: 04/05/20 13:25 Dose: 125 mls/hr Documented by: TOMMIE Morphine Sulfate (Morphine) 2 mg IVPUSH Q4H PRN PRN Reason: Pain (severe 7-10) Stop: 04/06/20 17:47 Sodium Chloride (Saline Flush) 10 ml FLUSH ASDIRECTED PRN PRN Reason: Keep Vein Open Sodium Chloride (Saline Flush) 2.5 ml FLUSH ASDIRECTED PRN PRN Reason: Keep Vein Open Assessment/Plan Comment:: Assessment and Plan: 1. Chest pain, ACS rule out: - Admit to med/surg floor. Patient on telemetry. Trend troponin q6h. Check BNP level, magnesium and phosphorus. 2. DVT prophylaxis: lovenox 40 mg subcut qd. 3. Past medical history of HTN, BRUNILDA, insomnia, anxiety and BPH: - Continue home medications. Patient to use home CPAP machine.
[2020-04-05] MEDS ORDERED: Enoxaparin 40 MG/0.4 ML Syringe SUBCUT SCH (18:00)
[2020-04-05] MEDS: Acetaminophen 325 MG Tab PO PRN (18:23)
[2020-04-06 05:53] LABS: BLOOD UREA NITROGEN,BUN 14 mg/dL (7.0-18.0); CARBON DIOXIDE,CO2 28.8 mmol/L (21.0-32.0); CHLORIDE,CL 106 mmol/L (98-107); GLUCOSE RANDOM 112 mg/dL (74-106); POTASSIUM,K 4.3 mmol/L (3.5-5.1); SODIUM,NA 139 mmol/L (136-148)
[2020-04-06] MEDS: Acetaminophen 325 MG Tab PO PRN (08:14)
[2020-04-06] MEDS ORDERED: Calcium Carbonate 500 MG Tab.Chew PO ONE ×2 (08:59→11:45)
[2020-04-06] MEDS ORDERED: Losartan 50 MG Tab PO SCH (09:00)
[2020-04-06] MEDS ORDERED: Sertraline 100 MG Tab PO SCH (09:00)
[2020-04-06] MEDS ORDERED: Finasteride 5 MG Tab PO SCH (09:00)
[2020-04-06] MEDS ORDERED: Tamsulosin 0.4 MG Cap.ER PO SCH (09:00)
[2020-04-06 12:31] VITALS: BP 116/62; PULSE 76
--- NOTE | 2020-04-06 12:54 | PCM.DCSUM1 ---
<Rey Presley M - Last Filed: 04/06/20 13:25> Discharge Summary - Hospital Course Free Text/Narrative:: 64-year-old male admitted for left sided chest pain and ACS rule out. He has a PMH of HTN, BPH and BRUNILDA on CPAP. CXR was negative. His troponins were trended and were negative. No events on telemetry noted. CT chest showed ground-glass appearance of BARTOLO and b/l lung bases. Patient denied having any fevers, chills or cough. COVID 19 test negative. CBC and CMP unremarkable. ECHO from 03/2020 showed normal EF. Patient discharged in stable condition and advised to follow- up with PCP and his pending cardiology appointment. Also provided referral to pulmonology for dyspnea and abnormal CT findings. Script provided for PFT with results to be forwarded to his PCP Dr. Garcia. - Discharge Data Discharge Date: 04/06/20 Discharge Disposition: Home, Self-Care 01 Condition: Stable - Referral to Home Health Primary Care Physician: PCP None - Patient Instructions Diet: Heart Healthy Diet Activity: As Tolerated Notify Provider of: Fever, Increased Pain, Swelling and Redness, Drainage, Nausea and/or Vomiting - Discharge Plan *PRESCRIPTION DRUG MONITORING PROGRAM REVIEWED*: Not Applicable *COPY OF PRESCRIPTION DRUG MONITORING REPORT IN PATIENT [place]: Not Applicable Home Medications: Home Meds LORazepam [Ativan] 0.5 mg PO DAILY PRN 05/26/16 [History] Sertraline [Zoloft] 100 mg PO DAILY 05/26/16 [History] Zolpidem [Ambien] 10 mg PO BEDTIME PRN 05/26/16 [History] Finasteride 5 mg PO DAILY 04/05/20 [History] Losartan [Cozaar] 25 mg PO DAILY 04/05/20 [History] Tamsulosin [Flomax] 0.4 mg PO DAILY 04/05/20 [History] Oxygen Therapy Mode: Room Air Patient Handouts: Nonspecific Chest Pain, Adult, [id number] Referrals: John Garcia MD [Ordering Only Provider] - 04/13/20 1:30 pm (Please arrive 15 minutes early with your identification, insurance cards and your own facemask.) - Discharge Summary/Plan Comment DC Time >30 min.: No - Patient Data Vitals - Most Recent: Last Vital Signs Temp 36.6 C 04/06/20 12:00 Pulse 76 04/06/20 12:00 Resp 16 04/06/20 12:00 BP 116/62 04/06/20 12:00 Pulse Ox 93 L 04/06/20 12:00 Weight - Most Recent: 114.623 kg I&O - Last 24 hours: Intake & Output 04/05/20 04/06/20 04/06/20 22:59 06:59 14:59 Intake Total 850 Output Total 1300 Balance -450 Lab Results - Last 24 hrs: Laboratory Results - last 24 hr 04/05/20 04/05/20 04/05/20 Range/Units 13:13 13:13 13:13 WBC 8.22 (4.0-11.0) K/uL RBC 5.79 (4.50-5.90) M/uL Hgb 17.2 H (13.0-17.0) g/dL Hct 49.9 (38.0-50.0) % MCV 86.2 (80.0-98.0) fL MCH 29.7 (27.0-32.0) pg MCHC 34.5 (31.0-37.0) g/dL RDW Std Deviation 42.2 (28.0-62.0) fl RDW Coeff of Javad 13 (11.0-15.0) % Plt Count 207 (150-400) K/uL MPV 10.00 (7.40-12.00) fL Neut % (Auto) 74.7 (48.0-80.0) % Lymph % (Auto) 12.9 L (16.0-40.0) % [place] % (Auto) 10.1 (0.0-15.0) % Eos % (Auto) 1.9 (0.0-7.0) % Baso % (Auto) 0.4 (0.0-1.5) % Neut # (Auto) 6.1 H (1.4-5.7) K/uL Lymph # (Auto) 1.1 (0.6-2.4) K/uL [place] # (Auto) 0.8 (0.0-0.8) K/uL Eos # (Auto) 0.2 (0.0-0.7) K/uL Baso # (Auto) 0.0 (0.0-0.1) K/uL Nucleated RBC % 0.0 /100WBC Nucleated RBCs # 0 K/uL D-Dimer, Quantitative 0.38 (0.0-0.50) mg/L FEU Sodium 139 (136-148) mmol/L Potassium 3.6 (3.5-5.1) mmol/L Chloride 101 (98-107) mmol/L Carbon Dioxide 28.0 (21.0-32.0) mmol/L BUN 14 (7.0-18.0) mg/dL Creatinine 1.1 (0.8-1.3) mg/dL Est Cr Clr Drug Dosing 76.42 mL/min Estimated GFR (MDRD) > 60.0 ml/min Glucose 95 (74-106) mg/dL Calcium 8.5 (8.5-10.1) mg/dL Phosphorus (2.6-4.7) mg/dL Magnesium (1.8-2.4) mg/dL Total Bilirubin 0.3 (0.2-1.0) mg/dL AST 19 (15-37) IU/L ALT 28 (14-63) IU/L Alkaline Phosphatase 82 (46-116) U/L Troponin I < 0.050 (0.000-0.056) ng/mL B-Natriuretic Peptide (<100) PG/ML Total Protein 8.1 (6.4-8.2) g/dL Albumin 4.3 (3.4-5.0) g/dL Globulin 3.8 (2.6-4.0) g/dL Albumin/Globulin Ratio 1.1 (0.9-1.6) TSH 3rd Generation (0.36-3.74) uIU/mL COVID-19 (SALLY) (NEGATIVE) 04/05/20 04/05/20 04/05/20 Range/Units 13:13 15:20 19:05 WBC (4.0-11.0) K/uL RBC (4.50-5.90) M/uL Hgb (13.0-17.0) g/dL Hct (38.0-50.0) % MCV (80.0-98.0) fL MCH (27.0-32.0) pg MCHC (31.0-37.0) g/dL RDW Std Deviation (28.0-62.0) fl RDW Coeff of Javad (11.0-15.0) % Plt Count (150-400) K/uL MPV (7.40-12.00) fL Neut % (Auto) (48.0-80.0) % Lymph % (Auto) (16.0-40.0) % [place] % (Auto) (0.0-15.0) % Eos % (Auto) (0.0-7.0) % Baso % (Auto) (0.0-1.5) % Neut # (Auto) (1.4-5.7) K/uL Lymph # (Auto) (0.6-2.4) K/uL [place] # (Auto) (0.0-0.8) K/uL Eos # (Auto) (0.0-0.7) K/uL Baso # (Auto) (0.0-0.1) K/uL Nucleated RBC % /100WBC Nucleated RBCs # K/uL D-Dimer, Quantitative (0.0-0.50) mg/L FEU Sodium (136-148) mmol/L Potassium (3.5-5.1) mmol/L Chloride (98-107) mmol/L Carbon Dioxide (21.0-32.0) mmol/L BUN (7.0-18.0) mg/dL Creatinine (0.8-1.3) mg/dL Est Cr Clr Drug Dosing mL/min Estimated GFR (MDRD) ml/min Glucose (74-106) mg/dL Calcium (8.5-10.1) mg/dL Phosphorus (2.6-4.7) mg/dL Magnesium (1.8-2.4) mg/dL Total Bilirubin (0.2-1.0) mg/dL AST (15-37) IU/L ALT (14-63) IU/L Alkaline Phosphatase (46-116) U/L Troponin I < 0.050 (0.000-0.056) ng/mL B-Natriuretic Peptide 23 (<100) PG/ML Total Protein (6.4-8.2) g/dL Albumin (3.4-5.0) g/dL Globulin (2.6-4.0) g/dL Albumin/Globulin Ratio (0.9-1.6) TSH 3rd Generation (0.36-3.74) uIU/mL COVID-19 (SALLY) NEGATIVE (NEGATIVE) 04/05/20 04/06/20 04/06/20 Range/Units 19:05 00:50 05:14 WBC 6.04 (4.0-11.0) K/uL RBC 5.00 (4.50-5.90) M/uL Hgb 14.6 (13.0-17.0) g/dL Hct 43.7 (38.0-50.0) % MCV 87.4 (80.0-98.0) fL MCH 29.2 (27.0-32.0) pg MCHC 33.4 (31.0-37.0) g/dL RDW Std Deviation 43.0 (28.0-62.0) fl RDW Coeff of Javad 14 (11.0-15.0) % Plt Count 179 (150-400) K/uL MPV 9.80 (7.40-12.00) fL Neut % (Auto) 73.3 (48.0-80.0) % Lymph % (Auto) 12.1 L (16.0-40.0) % [place] % (Auto) 10.8 (0.0-15.0) % Eos % (Auto) 3.5 (0.0-7.0) % Baso % (Auto) 0.3 (0.0-1.5) % Neut # (Auto) 4.4 (1.4-5.7) K/uL Lymph # (Auto) 0.7 (0.6-2.4) K/uL [place] # (Auto) 0.7 (0.0-0.8) K/uL Eos # (Auto) 0.2 (0.0-0.7) K/uL Baso # (Auto) 0.0 (0.0-0.1) K/uL Nucleated RBC % 0.0 /100WBC Nucleated RBCs # 0 K/uL D-Dimer, Quantitative (0.0-0.50) mg/L FEU Sodium (136-148) mmol/L Potassium (3.5-5.1) mmol/L Chloride (98-107) mmol/L Carbon Dioxide (21.0-32.0) mmol/L BUN (7.0-18.0) mg/dL Creatinine (0.8-1.3) mg/dL Est Cr Clr Drug Dosing mL/min Estimated GFR (MDRD) ml/min Glucose (74-106) mg/dL Calcium (8.5-10.1) mg/dL Phosphorus 3.4 (2.6-4.7) mg/dL Magnesium 1.9 (1.8-2.4) mg/dL Total Bilirubin (0.2-1.0) mg/dL AST (15-37) IU/L ALT (14-63) IU/L Alkaline Phosphatase (46-116) U/L Troponin I < 0.050 (0.000-0.056) ng/mL B-Natriuretic Peptide (<100) PG/ML Total Protein (6.4-8.2) g/dL Albumin (3.4-5.0) g/dL Globulin (2.6-4.0) g/dL Albumin/Globulin Ratio (0.9-1.6) TSH 3rd Generation 1.70 (0.36-3.74) uIU/mL COVID-19 (SALLY) (NEGATIVE) 04/06/20 04/06/20 Range/Units 05:14 05:14 WBC (4.0-11.0) K/uL RBC (4.50-5.90) M/uL Hgb (13.0-17.0) g/dL Hct (38.0-50.0) % MCV (80.0-98.0) fL MCH (27.0-32.0) pg MCHC (31.0-37.0) g/dL RDW Std Deviation (28.0-62.0) fl RDW Coeff of Javad (11.0-15.0) % Plt Count (150-400) K/uL MPV (7.40-12.00) fL Neut % (Auto) (48.0-80.0) % Lymph % (Auto) (16.0-40.0) % [place] % (Auto) (0.0-15.0) % Eos % (Auto) (0.0-7.0) % Baso % (Auto) (0.0-1.5) % Neut # (Auto) (1.4-5.7) K/uL Lymph # (Auto) (0.6-2.4) K/uL [place] # (Auto) (0.0-0.8) K/uL Eos # (Auto) (0.0-0.7) K/uL Baso # (Auto) (0.0-0.1) K/uL Nucleated RBC % /100WBC Nucleated RBCs # K/uL D-Dimer, Quantitative (0.0-0.50) mg/L FEU Sodium 139 (136-148) mmol/L Potassium 4.3 (3.5-5.1) mmol/L Chloride 106 (98-107) mmol/L Carbon Dioxide 28.8 (21.0-32.0) mmol/L BUN 14 (7.0-18.0) mg/dL Creatinine 1.2 (0.8-1.3) mg/dL Est Cr Clr Drug Dosing 70.06 mL/min Estimated GFR (MDRD) > 60.0 ml/min Glucose 112 H (74-106) mg/dL Calcium 7.7 L (8.5-10.1) mg/dL Phosphorus (2.6-4.7) mg/dL Magnesium (1.8-2.4) mg/dL Total Bilirubin (0.2-1.0) mg/dL AST (15-37) IU/L ALT (14-63) IU/L Alkaline Phosphatase (46-116) U/L Troponin I (0.000-0.056) ng/mL B-Natriuretic Peptide (<100) PG/ML Total Protein (6.4-8.2) g/dL Albumin 3.2 L (3.4-5.0) g/dL Globulin (2.6-4.0) g/dL Albumin/Globulin Ratio (0.9-1.6) TSH 3rd Generation (0.36-3.74) uIU/mL COVID-19 (SALLY) (NEGATIVE) Med Orders - Current: Current Medications Acetaminophen (Tylenol) 650 mg PO Q4H PRN PRN Reason: Pain (Mild 1-3)/fever Last Admin: 04/06/20 08:14 Dose: 650 mg Documented by: Enoxaparin Sodium (Lovenox) 40 mg SUBCUT Q24H LIAN Last Admin: 04/05/20 18:24 Dose: 40 mg Documented by: Finasteride (Proscar) 5 mg PO DAILY [facility] Last Admin: 04/06/20 08:13 Dose: 5 mg Documented by: Losartan Potassium (Cozaar) 25 mg PO DAILY [facility] Last Admin: 04/06/20 08:24 Dose: 25 mg Documented by: Morphine Sulfate (Morphine) 2 mg IVPUSH Q4H PRN PRN Reason: Pain (severe 7-10) Stop: 04/06/20 17:47 Zolpidem 10 Mg 1 each PO BEDTIME PRN PRN Reason: Sleep Last Admin: 04/05/20 21:18 Dose: 1 each Documented by: Sertraline HCl (Zoloft) 100 mg PO DAILY [facility] Last Admin: 04/06/20 08:16 Dose: 100 mg Documented by: Sodium Chloride (Saline Flush) 10 ml FLUSH ASDIRECTED PRN PRN Reason: Keep Vein Open Sodium Chloride (Saline Flush) 2.5 ml FLUSH ASDIRECTED PRN PRN Reason: Keep Vein Open Tamsulosin HCl (Flomax) 0.4 mg PO DAILY [facility] Last Admin: 04/06/20 08:13 Dose: 0.4 mg Documented by: Discontinued Medications Aspirin (Aspirin) 324 mg PO ONETIME ONE Stop: 04/05/20 13:04 Last Admin: 04/05/20 13:19 Dose: 324 mg Documented by: Calcium Carbonate/Glycine (Tums) 1,000 mg PO ONETIME ONE Stop: 04/06/20 09:00 Last Admin: 04/06/20 11:40 Dose: Not Given Documented by: Calcium Carbonate/Glycine (Tums) 1,000 mg PO ONETIME ONE Stop: 04/06/20 11:46 Last Admin: 04/06/20 11:42 Dose: 1,000 mg Documented by: Sodium Chloride (Normal Saline) 1,000 mls @ 125 mls/hr IV STAT ONE Stop: 04/05/20 21:20 Last Admin: 04/05/20 13:25 Dose: 125 mls/hr Documented by: Iopamidol ([id number] (76%)) 50 ml IV ONETIME STA Stop: 04/05/20 14:43 Last Admin: 04/05/20 15:03 Dose: 50 ml Documented by: Morphine Sulfate (Morphine) 4 mg IVPUSH ONETIME ONE Stop: 04/05/20 13:28 Last Admin: 04/05/20 13:32 Dose: 4 mg Documented by: Morphine Sulfate (Morphine) 2 mg IVPUSH ONETIME ONE Stop: 04/05/20 14:21 Last Admin: 04/05/20 15:12 Dose: 2 mg Documented by: Nitroglycerin (Nitrostat) 0.4 mg SL Q5M PRN PRN Reason: Chest Pain Last Admin: 04/05/20 13:29 Dose: 0.4 mg Documented by: Ondansetron HCl (Zofran) 4 mg IVPUSH ONETIME ONE Stop: 04/05/20 13:28 Last Admin: 04/05/20 13:32 Dose: 4 mg Documented by: <Herminio Kessler - Last Filed: 04/07/20 11:43> Discharge Summary - Referral to Home Health Primary Care Physician: PCP None - Patient Data Vitals - Most Recent: Last Vital Signs Temp 36.6 C 04/06/20 12:00 Pulse 76 04/06/20 12:00 Resp 16 04/06/20 12:00 BP 116/62 04/06/20 12:00 Pulse Ox 93 L 04/06/20 12:00 Med Orders - Current: Current Medications Discontinued Medications Acetaminophen (Tylenol) 650 mg PO Q4H PRN PRN Reason: Pain (Mild 1-3)/fever Last Admin: 04/06/20 08:14 Dose: 650 mg Documented by: Aspirin (Aspirin) 324 mg PO ONETIME ONE Stop: 04/05/20 13:04 Last Admin: 04/05/20 13:19 Dose: 324 mg Documented by: Calcium Carbonate/Glycine (Tums) 1,000 mg PO ONETIME ONE Stop: 04/06/20 09:00 Last Admin: 04/06/20 11:40 Dose: Not Given Documented by: Calcium Carbonate/Glycine (Tums) 1,000 mg PO ONETIME ONE Stop: 04/06/20 11:46 Last Admin: 04/06/20 11:42 Dose: 1,000 mg Documented by: Enoxaparin Sodium (Lovenox) 40 mg SUBCUT Q24H [facility] Last Admin: 04/05/20 18:24 Dose: 40 mg Documented by: Finasteride (Proscar) 5 mg PO DAILY [facility] Last Admin: 04/06/20 08:13 Dose: 5 mg Documented by: Sodium Chloride (Normal Saline) 1,000 mls @ 125 mls/hr IV STAT ONE Stop: 04/05/20 21:20 Last Admin: 04/05/20 13:25 Dose: 125 mls/hr Documented by: Iopamidol (Isovue-370 (76%)) 50 ml IV ONETIME STA Stop: 04/05/20 14:43 Last Admin: 04/05/20 15:03 Dose: 50 ml Documented by: Losartan Potassium (Cozaar) 25 mg PO DAILY [facility] Last Admin: 04/06/20 08:24 Dose: 25 mg Documented by: Morphine Sulfate (Morphine) 4 mg IVPUSH ONETIME ONE Stop: 04/05/20 13:28 Last Admin: 04/05/20 13:32 Dose: 4 mg Documented by: Morphine Sulfate (Morphine) 2 mg IVPUSH ONETIME ONE Stop: 04/05/20 14:21 Last Admin: 04/05/20 15:12 Dose: 2 mg Documented by: Morphine Sulfate (Morphine) 2 mg IVPUSH Q4H PRN PRN Reason: Pain (severe 7-10) Stop: 04/06/20 17:47 Nitroglycerin (Nitrostat) 0.4 mg SL Q5M PRN PRN Reason: Chest Pain Last Admin: 04/05/20 13:29 Dose: 0.4 mg Documented by: Ondansetron HCl (Zofran) 4 mg IVPUSH ONETIME ONE Stop: 04/05/20 13:28 Last Admin: 04/05/20 13:32 Dose: 4 mg Documented by: Zolpidem 10 Mg 1 each PO BEDTIME PRN PRN Reason: Sleep Last Admin: 04/05/20 21:18 Dose: 1 each Documented by: Sertraline HCl (Zoloft) 100 mg PO DAILY [facility] Last Admin: 04/06/20 08:16 Dose: 100 mg Documented by: Sodium Chloride (Saline Flush) 10 ml FLUSH ASDIRECTED PRN PRN Reason: Keep Vein Open Sodium Chloride (Saline Flush) 2.5 ml FLUSH ASDIRECTED PRN PRN Reason: Keep Vein Open Tamsulosin HCl (Flomax) 0.4 mg PO DAILY [facility] Last Admin: 04/06/20 08:13 Dose: 0.4 mg Documented by: - Free Text/Narrative Note: I have seen and evaluated the patient with the resident. I have discussed findings and treatment plan with the resident. I agree with the assessment and plan outlined in the following note.
== END 2020-04-06 12:10 | disposition home or self-care (01) ==
LOC: MW.ED 13:01 → MW.MS 15:45
PROVIDERS: ADMIT Internal Medicine; ATTEND Internal Medicine
DX: R07.89 Other chest pain (principal); F41.0 Panic disorder [episodic paroxysmal anxiety]; I10 Essential (primary) hypertension; N40.0 Benign prostatic hyperplasia without lower urinary tract symptoms; G47.33 Obstructive sleep apnea (adult) (pediatric); G47.00 Insomnia, unspecified; K76.89 Other specified diseases of liver; R91.8 Other nonspecific abnormal finding of lung field; Z20.828 Contact with and (suspected) exposure to other viral communicable diseases; Z99.89 Dependence on other enabling machines and devices; Z79.899 Other long term (current) drug therapy
CPT/HCPCS: 36415; 71045; 71275; 80048; 80053; 82040; 83735; 83880; 84100; 84443; 84484; 85025; 85379; 87635; 93005; 96374; 96375; 96376; 99285; A9270; J1650; J2270; J2405; J7030; Q9967; U0002

== ENCOUNTER 2020-06-18 16:55 | Observation (INO) | payer BC ==
[2020-06-18] MEDS ORDERED: Bupivacaine 0.5% 30 ML SDV ONE (17:32)
[2020-06-18] MEDS ORDERED: cefOXitin 2 GM in Premix Bag 1 BAG IV ONE (17:56)
[2020-06-18] MEDS ORDERED: fentaNYL 100 MCG/2 ML SDV ONE (18:44)
[2020-06-18] MEDS ORDERED: ceFAZolin/Dextrose,Iso-Osmotic 2 GM/50 ML Duplex Bag IV ONE (18:44)
[2020-06-18] MEDS ORDERED: Midazolam 1 MG/ML 2 ML SDV ONE (18:44)
[2020-06-18] MEDS ORDERED: Ondansetron 4 MG/2 ML SDV ONE (18:44)
[2020-06-18] MEDS ORDERED: Lidocaine 2% 5 ML SDV ONE (18:44)
[2020-06-18] MEDS ORDERED: Propofol 200 MG/20 ML SDV ONE (18:44)
[2020-06-18] MEDS ORDERED: HYDROmorphone 2 MG/ML Syringe ONE (18:45)
[2020-06-18 18:56] LABS: BLOOD UREA NITROGEN,BUN 25 mg/dL (7.0-18.0); CHLORIDE,CL 100 mmol/L (98-107); GLUCOSE RANDOM 214 mg/dL (74-106); POTASSIUM,K 3.4 mmol/L (3.5-5.1); SODIUM,NA 137 mmol/L (136-148)
[2020-06-18] MEDS ORDERED: Sugammadex Sodium 200 MG/2 ML VIAL ONE (19:14)
--- NOTE | 2020-06-18 19:20 | PCM.PREANE ---
Preanesthetic Assessment - Procedure Proposed Procedure: Hemorrhoidectomy for active bleeding - Anesthesia/Transfusion/Family Hx Anesthesia History: Prior Anesthesia Without Reaction (Multiple knee surgeries, cholecystectomy, skin cancer surgery, and others without anesthesia co mplications.) Family History of Anesthesia Reaction: No Transfusion History: Unknown Additional History: Wears CPAP for BRUNILDA. HTN well-controlled on medication. Anxiety mild (takes benzo PRN, usually once to twice a week per patient) and insomnia with ambien nightly. - Review of Systems General: No Symptoms Pulmonary: No Symptoms Cardiovascular: No Symptoms Gastrointestinal: No Symptoms, Other (Roddy rectal bleeding) Neurological: No Symptoms Other: Reports: None - Physical Assessment NPO Status Date: 06/18/20 NPO Status Time: 15:00 (Full meal at 1200, toast and water at 1500) Vital Signs: Last Vital Signs Temp 35.7 C L 06/18/20 17:26 Pulse 110 H 06/18/20 17:26 Resp 16 06/18/20 17:26 BP 129/72 06/18/20 17:26 Pulse Ox 93 L 06/18/20 17:26 Height: 1.83 m Weight: 113.398 kg ASA Class: 2E Mental Status: Alert & Oriented x3 Dentition: Reports: Normal Dentition, Implants (One implant) Thyro-Mental Finger Breadths: 3 Mouth Opening Finger Breadths: 3 ROM/Head Extension: Full Lungs: Clear to Auscultation, Normal Respiratory Effort Cardiovascular: Regular Rate, Regular Rhythm - Lab Values: Laboratory Last Values WBC 9.02 K/uL (4.0-11.0) 06/18/20 18:15 RBC 5.37 M/uL (4.50-5.90) 06/18/20 18:15 Hgb 16.2 g/dL (13.0-17.0) 06/18/20 18:15 Hct 46.5 % (38.0-50.0) 06/18/20 18:15 MCV 86.6 fL (80.0-98.0) 06/18/20 18:15 MCH 30.2 pg (27.0-32.0) 06/18/20 18:15 MCHC 34.8 g/dL (31.0-37.0) 06/18/20 18:15 RDW Std Deviation 42.2 fl (28.0-62.0) 06/18/20 18:15 RDW Coeff of Javad 14 % (11.0-15.0) 06/18/20 18:15 Plt Count 215 K/uL (150-400) 06/18/20 18:15 MPV 10.00 fL (7.40-12.00) 06/18/20 18:15 Neut % (Auto) 77.5 % (48.0-80.0) 06/18/20 18:15 Lymph % (Auto) 13.0 % (16.0-40.0) L 06/18/20 18:15 [place] % (Auto) 8.1 % (0.0-15.0) 06/18/20 18:15 Eos % (Auto) 1.1 % (0.0-7.0) 06/18/20 18:15 Baso % (Auto) 0.3 % (0.0-1.5) 06/18/20 18:15 Neut # (Auto) 7.0 K/uL (1.4-5.7) H 06/18/20 18:15 Lymph # (Auto) 1.2 K/uL (0.6-2.4) 06/18/20 18:15 [place] # (Auto) 0.7 K/uL (0.0-0.8) 06/18/20 18:15 Eos # (Auto) 0.1 K/uL (0.0-0.7) 06/18/20 18:15 Baso # (Auto) 0.0 K/uL (0.0-0.1) 06/18/20 18:15 Nucleated RBC % 0.0 /100WBC 06/18/20 18:15 Nucleated RBCs # 0 K/uL 06/18/20 18:15 Sodium 137 mmol/L (136-148) 06/18/20 18:15 Potassium 3.4 mmol/L (3.5-5.1) L 06/18/20 18:15 Chloride 100 mmol/L (98-107) 06/18/20 18:15 Carbon Dioxide 29.0 mmol/L (21.0-32.0) 06/18/20 18:15 BUN 25 mg/dL (7.0-18.0) H 06/18/20 18:15 Creatinine 1.2 mg/dL (0.8-1.3) 06/18/20 18:15 Est Cr Clr Drug Dosing 70.06 mL/min 06/18/20 18:15 Estimated GFR (MDRD) > 60.0 ml/min 06/18/20 18:15 Glucose 214 mg/dL (74-106) H 06/18/20 18:15 Calcium 8.5 mg/dL (8.5-10.1) 06/18/20 18:15 Total Bilirubin 0.3 mg/dL (0.2-1.0) 06/18/20 18:15 AST 18 IU/L (15-37) 06/18/20 18:15 ALT 37 IU/L (14-63) 06/18/20 18:15 Alkaline Phosphatase 83 U/L (46-116) 06/18/20 18:15 Total Protein 7.1 g/dL (6.4-8.2) 06/18/20 18:15 Albumin 3.8 g/dL (3.4-5.0) 06/18/20 18:15 Globulin 3.3 g/dL (2.6-4.0) 06/18/20 18:15 Albumin/Globulin Ratio 1.2 (0.9-1.6) 06/18/20 18:15 SARS-CoV-2 RNA (SALLY) NEGATIVE (NEGATIVE) 06/18/20 18:00 - Allergies Allergies/Adverse Reactions: Allergies Allergy/AdvReac Type Severity Reaction Status Date / Time No Known Allergies Allergy Verified 06/18/20 18:25 - Anesthesia Plan Free Text/Narrative:: Plan for GA with ETT, and RSI. Plan discussed with patient, including risks/benefits/alternatives. All questions answered and concerns addressed. - Acknowledgements Anesthesia Type Planned: General Anesthesia Pt an Appropriate Candidate for the Planned Anesthesia: Yes Alternatives and Risks of Anesthesia Discussed w Pt/Guardian: Yes Pt/Guardian Understands and Agrees with Anesthesia Plan: Yes PreAnesthesia Questionnaire HEENT History: Reports: None Cardiovascular History: Reports: High Cholesterol, Hypertension Respiratory History: Reports: Sleep Apnea Gastrointestinal History: Reports: None Genitourinary History: Reports: None Psychiatric History: Reports: Anxiety, Panic Attack Hematologic History: Reports: None Immunologic History: Reports: None Oncologic (Cancer) History: Reports: None - Infectious Disease History Infectious Disease History: Reports: None - Past Surgical History Head Surgeries/Procedures: Reports: None HEENT Surgical History: Reports: Oral Surgery GI Surgical History: Reports: Cholecystectomy Male Surgical History: Reports: TURP-Transurethral Resection of Prostate Musculoskeletal Surgical History: Reports: Other (See Below) - SUBSTANCE USE Smoking Status *Q: Light Tobacco Smoker Tobacco Use Within Last Twelve Months: Smokeless Tobacco Recreational Drug Use History: Yes - HOME MEDS Home Medications: Home Meds LORazepam [Ativan] 0.5 mg PO DAILY PRN 05/26/16 [History] Sertraline [Zoloft] 100 mg PO DAILY 05/26/16 [History] Zolpidem [Ambien] 10 mg PO BEDTIME PRN 05/26/16 [History] Finasteride 5 mg PO DAILY 04/05/20 [History] Losartan [Cozaar] 25 mg PO DAILY 04/05/20 [History] Tamsulosin [Flomax] 0.4 mg PO DAILY 04/05/20 [History] - CURRENT (IN HOUSE) MEDS Current Meds: Current Medications Discontinued Medications Bupivacaine HCl (Marcaine 0.5%) Confirm Administered Dose 30 ml .ROUTE .STK-MED ONE Stop: 06/18/20 17:33 Cefazolin Sodium/Dextrose (Ancef) Confirm Administered Dose 2 gm IV .STK-MED ONE Stop: 06/18/20 18:45 Fentanyl (Sublimaze) Confirm Administered Dose 100 mcg .ROUTE .STK-MED ONE Stop: 06/18/20 18:45 Hydromorphone HCl (Dilaudid) Confirm Administered Dose 2 mg .ROUTE .STK-MED ONE Stop: 06/18/20 18:46 Cefoxitin Sodium 2 gm/ Premix 50 mls @ 100 mls/hr IV ONETIME ONE Stop: 06/18/20 18:25 Last Admin: 06/18/20 18:48 Dose: 100 mls/hr Documented by: Lidocaine (Xylocaine-Mpf 2%) Confirm Administered Dose 5 ml .ROUTE .STK-MED ONE Stop: 06/18/20 18:45 Midazolam HCl (Versed 1 Mg/Ml) Confirm Administered Dose 2 mg .ROUTE .STK-MED ONE Stop: 06/18/20 18:45 Ondansetron HCl (Zofran) Confirm Administered Dose 4 mg .ROUTE .STK-MED ONE Stop: 06/18/20 18:45 Propofol (Diprivan 20 Ml) Confirm Administered Dose 200 mg .ROUTE .[facility] ONE Stop: 06/18/20 18:45
[2020-06-18] MEDS ORDERED: Rocuronium Bromide 50 MG/5 ML Syringe ONE (19:23)
--- NOTE | 2020-06-18 20:15 | HP ---
DATE OF : 1955 PRIMARY CARE PHYSICIAN: John Garcia MD HISTORY OF PRESENT ILLNESS: The patient is a pleasant 64-year-old gentleman who I had seen earlier today. The patient has had hemorrhoids off and on for the last 20 to 30 years. He says yesterday while he was out [place] hunting, he noticed a hemorrhoid become very painful and hard. He went to his primary care provider early this morning and then he was seen in my clinic this morning urgently. He did have a thrombosed right hemorrhoid. I did go over with the patient that he could go to the OR to remove this, remove the thrombus in the clinic, or wait for it to resolve on its own. The patient said he would like to hold off any OR procedure. I did go over that we could remove the thrombosis and that should release some pressure. However, it might continue to bleed or the thrombosis may return. The patient understands. The patient elected just to the office procedure. The procedure went well. We removed the large clot. The patient, however, called later on, and said after getting home, he noticed some bleeding on the 4 x 4s we gave him. He says it was kind of just a slight ooze, but he has gone through two 4 x 4s. I told him that he should come back to the ER for definitive treatment of the bleeding thrombosed hemorrhoid rather than wait and see if it stopped at home. The patient understands and will go to the ER. In the ER, the patient is doing well. On examination, it was felt the hemorrhoid might have actually stopped bleeding again right now. PAST MEDICAL HISTORY: Significant for; 1. Sleep apnea. 2. Hypertension. 3. Anxiety. 4. Hypercholesterolemia. CURRENT HOME MEDICATIONS: 1. Flomax 0.4 mg p.o. daily. 2. Zoloft 100 mg p.o. daily. 3. Cozaar 25 mg p.o. daily. 4. Ambien 10 mg at bedtime p.r.n. 5. Ativan 0.5 mg p.o. daily. 6. Finasteride 5 mg p.o. daily. LABORATORY DATA: Labs are still pending along with COVID. PAST SURGICAL HISTORY: 1. Cholecystectomy. 2. TURP. 3. Inguinal hernia repair. 4. Umbilical hernia repair. 5. Multiple patellar tendon repairs. 6. Excision of a basal cell carcinoma from the back. REVIEW OF SYSTEMS: A complete 12+ review of systems was done and was negative except in HPI. CARDIAC: He was having some chest pain several months ago. He said he went to outside rigger and had a stress and echo that were all fine. He has not had any chest pains for several months now. SOCIAL HISTORY: The patient denies any tobacco use, denies any illicit drug use, denies any alcohol use. FAMILY HISTORY: Noncontributory. PHYSICAL EXAMINATION: GENERAL: The patient is resting comfortably in ER bed. He is alert and oriented, in no acute distress. VITAL SIGNS: Temperature is 96.3, pulse is 110, blood pressure is 126/72, saturating 93% on room air. HEENT: Head is normocephalic and atraumatic. Mouth, he is wearing a mask. LUNGS: Clear to auscultation bilaterally. No rhonchi or wheezing heard. HEART: Regular rhythm. No murmur appreciated. EXTREMITIES: No edema. NEUROLOGIC: Grossly, no motor or neurologic deficit noted. RECTAL: He did have a 4 x 4 that had a little bit of blood on it. Does not look to be actively bleeding currently though. Does have a hemorrhoid on the right side. I did not remove the dressing because doing so may take off any clot that might have formed. CLINICAL FINDINGS: A pleasant 64-year-old gentleman with a thrombosed hemorrhoid that is now bleeding. Did go over with the patient that with the bleeding, I would like to take him back to the OR to remove the right hemorrhoid. I did go through again the risks, goals, and alternatives to this. Risks include, but are not limited to bleeding, infection, injury to underlying structures such as the sphincter muscles leading to incontinence of stool or flatus, pain, stenosis. The patient says he understands. He would like to proceed with the procedure. Did go over with the patient he might end up staying the evening in the hospital because of his sleep apnea, he lives alone, and lateness of the procedure being done. The patient understands. Also, I went over with the patient that there is always a chance that hemorrhoid could recur or there could be other hemorrhoids in the the other hemorrhoidal dalal. The patient understands. All his questions were answered. The patient wished to be full code for the procedure. The patient will be taken back to the OR as soon as one is available. RAMONA HAGAN /[id number] MTDD
[2020-06-18] MEDS ORDERED: Acetaminophen/HYDROcodone 325-5 MG Tab PO PRN (20:45)
[2020-06-18] MEDS ORDERED: Ketorolac 30 MG/ML SDV ONE (20:51)
--- NOTE | 2020-06-18 21:00 | PCM.OPNOTE ---
- General Post-Op/Procedure Note Date of Surgery/Procedure: 06/18/20 Operative Procedure(s): Hemorroidectomy Findings: Thrombosed external hemorrhoid on right. dictation number [id number] Pre Op Diagnosis: Thrombosed External hemorrhoid Post-Op Diagnosis: Thrombosed External hemorrhoid Anesthesia Technique: General ET Tube Primary Surgeon: Randy Kessler Pathology: hemorrhoid EBL in mLs: 30 Condition: Good
--- NOTE | 2020-06-18 21:06 | PCM.POSTAN ---
POST ANESTHESIA ASSESSMENT - MENTAL STATUS Mental Status: Alert, Oriented - VITAL SIGNS Vital Signs: Last Vital Signs Temp 36.8 C 06/18/20 20:43 Pulse 73 06/18/20 21:00 Resp 14 06/18/20 21:00 BP 112/63 06/18/20 21:00 Pulse Ox 99 06/18/20 21:00 - RESPIRATORY Respiratory Status: Respiratory Rate WNL, Airway Patent (Nasal airway has been removed, alert and breathing without obstruction, not requiring home CPAP), O2 Saturation Stable - CARDIOVASCULAR CV Status: Pulse Rate WNL, Blood Pressure Stable - GASTROINTESTINAL GI Status: No Symptoms - PAIN Pain Score: 0 (Denies pain) - POST OP HYDRATION Hydration Status: Adequate & Stable
--- NOTE | 2020-06-18 21:16 | PCM48HPAN ---
Post Anesthesia Note - EVALUATION WITHIN 48HRS OF ANESTHETIC Vital Signs in Normal Range: Yes Patient Participated in Evaluation: Yes Respiratory Function Stable: Yes (Remains stable, no need for home CPAP at this time. 3LNC) Airway Patent: Yes Cardiovascular Function Stable: Yes Hydration Status Stable: Yes Pain Control Satisfactory: Yes (Denies pain) Nausea and Vomiting Control Satisfactory: Yes (Denies nausea, taking PO clear liquids well.) Mental Status Recovered: Yes Vital Signs: Last Vital Signs Temp 36.8 C 06/18/20 20:43 Pulse 81 06/18/20 21:10 Resp 15 06/18/20 21:10 BP 116/66 06/18/20 21:10 Pulse Ox 95 06/18/20 21:10
--- NOTE | 2020-06-18 22:22 | OR ---
SURGEON: YEISON LEON MD DATE OF PROCEDURE: 06/18/2020 PREOPERATIVE DIAGNOSIS: Thrombosed external hemorrhoid. POSTOPERATIVE DIAGNOSIS: Thrombosed external hemorrhoid. PROCEDURE PERFORMED: Hemorrhoidectomy. SPECIMEN: Hemorrhoid. PRIMARY SURGEON: Yeison Leon MD ANESTHESIA: General. ESTIMATED BLOOD LOSS: 30 mL. COMPLICATIONS: None. REASON FOR PROCEDURE: The patient is a pleasant 64-year-old gentleman who has had hemorrhoids for the past 20 to 30 years. Yesterday, he had sudden pain and swelling, was found to have a taut, painful, thrombosed hemorrhoid. This was lanced in my office, however, at home, the patient said it started to bleed again. In the ER, it was not bleeding, but I recommended just going back for definitive treatment of this very large right external thrombosed hemorrhoid. I did go over the risks, goals, and alternatives of the procedure. Risks include, but not limited to, bleeding, infection, recurrence, chronic pain, stenosis, injury to sphincter muscles. The patient understood and wished to proceed. OPERATIVE PROCEDURE: The patient was brought back to the OR. He was prepped and draped in the usual sterile fashion. He was put in stirrups and prepped and draped. A time-out was performed. Exam was done. The patient did have a large right thrombosed hemorrhoid that did have a little bit of internal hemorrhoid component of it. He also had a left internal hemorrhoid that was not very large. Now, the anal sphincter was injected with local along with the base of the hemorrhoid. Now, the apex of the hemorrhoid was then sutured with a 3-0 Vicryl. The large right hemorrhoid was then elevated up and carefully dissected off with electrocautery and Harmonic scalpel. We went carefully as not to transect any muscle fibers. This continued up to the apex. It was transected. Now, the defect was inspected. to remove the hemorrhoid. Now, we continued removal of a right posterior hemorrhoid. Now, the mucosal edges were brought back together using the apex Vicryl sutures locking the sutures. The length of the incision was not completely closed and the external part was left open. Now, the rectum was again inspected. Mucosa came together nicely. The patient, I felt, had good rectal tone. Now, more local was placed. There was good hemostasis. Now, Surgicel was rolled up and placed into lidocaine ointment and placed into the rectum. Sponge and needle count was correct at the end of the case, and the patient was transferred to recovery in stable condition. RAMONA HAGAN /[id number]
--- NOTE | 2020-06-19 08:11 | PCM48HPAN ---
Post Anesthesia Note - EVALUATION WITHIN 48HRS OF ANESTHETIC Vital Signs in Normal Range: Yes Patient Participated in Evaluation: Yes Respiratory Function Stable: Yes Airway Patent: Yes Cardiovascular Function Stable: Yes Hydration Status Stable: Yes Pain Control Satisfactory: Yes (Reports pain 4-5 with activity, reports adequate pain control) Nausea and Vomiting Control Satisfactory: Yes (denies nausea, taking PO well) Mental Status Recovered: Yes Vital Signs: Last Vital Signs Temp 36.4 C 06/19/20 03:05 Pulse 77 06/19/20 03:05 Resp 13 06/19/20 03:05 BP 109/55 L 06/19/20 03:05 Pulse Ox 93 L 06/19/20 03:05 - COMMENTS/OBSERVATIONS Free Text/Narrative:: Observed ambulating without difficulty.
[2020-06-19] MEDS ORDERED: Losartan 50 MG Tab PO SCH (09:00)
[2020-06-19] MEDS ORDERED: Tamsulosin 0.4 MG Cap.ER PO SCH (09:00)
[2020-06-19] MEDS ORDERED: Finasteride 5 MG Tab PO SCH (09:00)
[2020-06-19 12:45] VITALS: BP 128/71; PULSE 88
--- NOTE | 2020-06-20 12:51 | PN ---
SUBJECTIVE: The patient was actually up and dressed in his room this morning on rounding. The patient says he feels very good. He says that he just has some minimal tenderness at the surgical site. The patient says he has eaten and has urinated. He says he is passing some flatus. The patient said that he did have a little bit of blood when he wiped with some toilet paper, otherwise no rectal bleeding. He overall feels very good. OBJECTIVE: GENERAL: The patient is standing up and appear comfortable in hospital room. VITAL SIGNS: Temperature is 97.9, pulse is 88, blood pressure is 128/71, saturating 93% on room air. ASSESSMENT AND PLAN: The patient is a pleasant 64-year-old gentleman who did a right hemorrhoidectomy yesterday for a thrombosed bleeding hemorrhoid. The patient is doing well today. I did go over with the patient the surgery. I went over that he will be sore next couple of days. I went over the discharge instructions. The patient may do sitz bath, and he may shower. He should eat as tolerated, but should try to avoid constipation or diarrhea as much as possible. I did go over that he did have some Surgicel in his rectum, this would come out as we look at the white sheet of cloth and that was normal. He should contact us if he has any severe pain, fevers, chills, or excess of drainage or bleeding from the rectum. The patient understands. He is discharged to home. He may also use p.r.n. lidocaine ointment that he was given from his surgery. The patient will follow up with me in 2 to 3 weeks, sooner if he has any issues or problems. RAMONA HAGAN /[id number] LAN
== END 2020-06-19 09:12 | disposition home or self-care (01) ==
LOC: MW.ED 16:55 → MW.SDS 18:13 → MW.MS 19:04
PROVIDERS: ADMIT Surgery; ATTEND Surgery
DX: K64.5 Perianal venous thrombosis (principal); I10 Essential (primary) hypertension; F41.9 Anxiety disorder, unspecified; E78.00 Pure hypercholesterolemia, unspecified; G47.33 Obstructive sleep apnea (adult) (pediatric); Z79.899 Other long term (current) drug therapy; Z90.49 Acquired absence of other specified parts of digestive tract; Z01.812 Encounter for preprocedural laboratory examination; Z20.828 Contact with and (suspected) exposure to other viral communicable diseases
CPT/HCPCS: 36415; 49320; 80053; 85025; 87635; 88304; J0131; J0690; J0694; J1170; J2001; J2250; J2405; J2704; J3010; J3490; U0002

== ENCOUNTER 2022-03-12 05:42 | Emergency (ER) | payer BC | END 2022-03-12 05:50 | disposition left against medical advice (07) | LOC: MW.ED 05:42 | DX: Z53.21 Procedure and treatment not carried out due to patient leaving prior to being seen by health care provider (principal) ==

== ENCOUNTER 2024-03-21 11:50 | Emergency (ER) | payer MEDICARE, OTHER ==
[2024-03-21] MEDS ORDERED: Sodium Chloride 0.9% 10 ML Syringe FLUSH PRN (12:56)
[2024-03-21] MEDS ORDERED: Sodium Chloride 0.9% 2.5 ML Syringe FLUSH PRN (12:56)
[2024-03-21 13:14] LABS: BASOPHILS ABSOLUTE AUTO 0.04 K/uL (0.00-0.20); BASOPHILS PERCENT AUTO 0.6 % (0.0-1.0); EOSINOPHILS PERCENT AUTO 1.5 % (0.0-6.0); HEMATOCRIT 44.8 % (42.0-52.0); HEMOGLOBIN 15.3 g/dL (14.0-18.0); IMMATURE GRAN ABSOLUTE AUTO 0.04 K/uL (0.00-0.05); IMMATURE GRAN PERCENT AUTO 0.6 % (0.0-0.4); LYMPHOCYTES ABSOLUTE AUTO 0.66 K/uL (1.00-4.80); LYMPHOCYTES PERCENT AUTO 9.7 % (24.0-44.0); MEAN CORPUSCULAR HEMOGLOBIN 29.4 pg (28.0-32.0); MEAN CORPUSCULAR HGB CONC 34.2 g/dL (32.0-36.0); MEAN CORPUSCULAR VOLUME 86.2 fL (83.0-99.0); MEAN PLATELET VOLUME 9.4 fL (9.4-12.4); MONOCYTES ABSOLUTE AUTO 0.63 K/uL (0.00-0.80); MONOCYTES PERCENT AUTO 9.3 % (0.0-8.0); NEUTROPHILS ABSOLUTE AUTO 5.33 K/uL (1.80-7.70); NEUTROPHILS PERCENT AUTO 78.3 % (41.0-71.0); PLATELET COUNT,PLT 196 K/uL (150-400)
[2024-03-21 13:41] LABS: A/G RATIO 1.2 (0.9-1.6); ALBUMIN 3.5 g/dL (3.4-5.0); BILIRUBIN TOTAL 0.4 mg/dL (0.2-1.0); CALCIUM 8.7 mg/dL (8.5-10.1); CARBON DIOXIDE,CO2 28.4 mmol/L (21.0-32.0); CREATININE 1.1 mg/dL (0.8-1.3); EST CRCL DRUG DOSING (CG) 72.51 mL/min; POTASSIUM,K 4.1 mmol/L (3.5-5.1); PROTEIN TOTAL,TP 6.4 g/dL (6.4-8.2)
[2024-03-21] MEDS: Iopamidol 755 MG/ML 500 ML Multipack Bottle IVPUSH STA (14:38)
[2024-03-21 16:08] VITALS: BP 134/86; PULSE 65
== END 2024-03-21 16:09 | disposition home or self-care (01) ==
LOC: MW.ED 11:50
DX: R51.9 Headache, unspecified (principal); I10 Essential (primary) hypertension; K21.9 Gastro-esophageal reflux disease without esophagitis; E66.9 Obesity, unspecified; Z79.899 Other long term (current) drug therapy; Z75.8 Other problems related to medical facilities and other health care; Z68.30 Body mass index [BMI] 30.0-30.9, adult
CPT/HCPCS: 36415; 70450; 70496; 70498; 80053; 85025; 85652; 99284; Q9967; 99282